=== PATIENT | female | born 1940 | race Caucasian/White ===

== ENCOUNTER 2016-10-01 21:59 | Inpatient (IN) | payer MEDICARE, MEDICAID ==
[~2016-10-01] VITALS: Ht 157.5 cm; Wt 82.0 kg
[~2016-10-01 21:59] MED LIST: ACET325T14 PO; ACID1TAB PO; ALBU2.5V NEB; AMIO200T42 PO; AMLO2.5T PO; AMLO2.5T2 PO; AMLO5TAB2 PO; ASPI-621 PO; ASPI325T4 PO; ASPI325T80 PO; ASPI81TA14 PO; ASPI81TA50 PO; ATOR40TA78 PO; BISA10SU54 PR; BUDE10.2 IH; CALC3.7S NAS; CARV3.122 PO; CEFD300C37 PO; CHOL100015 PO; CHOL10002 PO; CIPR500T87 PO; CLOP75TA PO; CYAN100028 PO; DIPH1TAB PO; DIPH1TAB6 PO; DIPH60LI PO; DULO30CA2 PO; ENOX40SY4 SQ; ERTA1VIA IV; FAMO-79 PO; FEXO180T5 PO; FLUT1AER PO; FLUT1DIS5 IH; FURO-92 PO; Gentamicin Per Pharmacy MC; HEPA50004 SQ; HYDR12.53 PO; INSU100C5 SQ-INSULIN; INSU100I18 SQ-INSULIN; INSU100I28 SQ-INSULIN; INSU100V10 SC; LACT1TAB3 PO; LANS15CA45 PO; LEVO100T PO; LEVO112T2 PO; LEVO500T33 PO; LEVO50TA PO; LEVO750T26 PO; LEVO750T6 PO; LIDO700A5 TD; LORA10TA62 PO; METF500T4 PO; METO25TA35 PO; METO50TA82 PO; METR500T PO; MIRT15TA PO; MORP-52 PO; MORP10SO PO; MORP20CA18 PO; MORPHINE SULFATE IR PO; Morphine Sulfate PO; NITR100C6 PO; NITR50CA PO; ONDA4TAB7 PO; OXYC-229 PO; POTA10TA11 PO; POTA20TA14 PO; POTA20TA91 PO; PRED10TA PO; PRED10TA14 PO; PREG100C PO; PREG25CA PO; RISP0.5T18 PO; RIVA10TA PO; RIVA20TA PO; SIMV10TA3 PO; SIMV20TA PO; SIMV20TA3 PO; TRAM50TA2 PO; VANC1VIA3 PO; VILA10TA PO; VILA40TA PO
[2016-10-01 23:04] LABS: ASPARTATE AMINO TRANSFERASE 21 U/L (15-37); BLOOD UREA NITROGEN 26 mg/dL (7-18)
[2016-10-02] MEDS ORDERED: ERTAPENEM 1 GM in SODIUM CHLORIDE 0.9% 50 ML IV ONE
[2016-10-02] MEDS ORDERED: SODIUM CHLORIDE 0.9% 1,000ML IVBOLUS ONE ×2 (01:00)
[2016-10-02] MEDS ORDERED: GLIP10TA13 PO (01:58)
[2016-10-02] MEDS ORDERED: METF10002 PO (01:58)
[2016-10-02] MEDS ORDERED: MAGN400T7 PO (01:58)
[2016-10-02] MEDS ORDERED: FERR324T5 PO (01:58)
[2016-10-02] MEDS ORDERED: AMLO5TAB4 PO (01:58)
[2016-10-02] MEDS ORDERED: LEVO100T5 PO (01:58)
[2016-10-02] MEDS: INSULIN DETEMIR 100 UNITS/ML, PEN SQ-INSULIN SCH ×2 (02:00→14:00)
[2016-10-02] MEDS ORDERED: SODIUM CHLORIDE 0.9% 1,000 ML IV SCH (02:01)
[2016-10-02] MEDS ORDERED: PHARMACY MAY ADJ FOR RENAL FX MC PRN (02:30)
[2016-10-02] MEDS: LEVOTHYROXINE MC SCH ×3 (03:00→19:00)
[2016-10-02] MEDS ORDERED: DEXTROSE 50%, 50ML SYRINGE ONE (03:02)
[2016-10-02] MEDS ORDERED: DEXTROSE 50%, 50ML SYRINGE IVPush PRN ×2 (03:30)
[2016-10-02] MEDS ORDERED: DEXTROSE 4 GM TAB.CHEW PO PRN ×2 (03:30)
[2016-10-02] MEDS ORDERED: ALBUTEROL/IPRATROPIUM 2.5MG/0.5MG, 3 ML NPPB PRN (03:30)
[2016-10-02] MEDS ORDERED: GLUCAGON 1 MG IM PRN ×2 (03:30)
[2016-10-02 05:18] VITALS: BP 132/71
[2016-10-02] MEDS ORDERED: LEVOTHYROXINE 112 MCG TABLET PO SCH (06:00)
[2016-10-02 06:30] VITALS: BP 137/78
[2016-10-02] MEDS: INSULIN ASPART 100 UNITS/ML, PEN SQ-INSULIN SCH ×4 (07:00→20:23)
[2016-10-02 07:42] LABS: IS PT STATUS REG ER OR PRE ER? NO
[2016-10-02] MEDS ORDERED: SODIUM CHLORIDE FLUSH 10ML SYR IVF SCH (09:00)
[2016-10-02] MEDS: SODIUM CHLORIDE FLUSH 10ML SYR IVF SCH ×2 (09:00→20:22)
[2016-10-02] MEDS: RIVAROXABAN 10 MG TABLET PO SCH (10:25)
[2016-10-02] MEDS: MAGNESIUM OXIDE 400 MG TABLET PO SCH (10:26)
[2016-10-02] MEDS: AMIODARONE 200 MG TABLET PO SCH (10:26)
[2016-10-02] MEDS: PREGABALIN 100 MG CAPSULE PO SCH ×3 (10:26→20:22)
[2016-10-02] MEDS: FERROUS SULFATE 325 MG TABLET PO SCH ×2 (10:26→20:22)
[2016-10-02] MEDS: AMLODIPINE 5 MG TABLET PO SCH (10:26)
[2016-10-02] MEDS: LEVOTHYROXINE 100 MCG TABLET PO SCH (10:49)
[2016-10-02] MEDS: CARVEDILOL 3.125 MG TABLET PO SCH ×2 (10:49→18:21)
[2016-10-02] MEDS: FLUTICASONE/VILANTEROL 100-25MCG/INH INH SCH (10:49)
[2016-10-02 12:32] LABS: IS PT STATUS REG ER OR PRE ER? NO
[2016-10-02 12:55] VITALS: BP 143/86
[2016-10-02 18:45] VITALS: BP 139/70
[2016-10-02] MEDS: ATORVASTATIN 40 MG TABLET PO SCH (20:22)
[2016-10-02] MEDS ORDERED: KETOROLAC 30 MG/1 ML IM PRN (23:00)
[2016-10-02] MEDS: ERTAPENEM 1 GM in SODIUM CHLORIDE 0.9% 50 ML IV SCH (23:43)
[2016-10-02 23:44] VITALS: BP 143/77
[2016-10-03] MEDS: LEVOTHYROXINE MC SCH ×2 (03:00→11:00)
[2016-10-03] MEDS ORDERED: KETOROLAC 30 MG/1 ML IV PRN (05:00)
[2016-10-03 05:21] LABS: ASPARTATE AMINO TRANSFERASE 19 U/L (15-37); BLOOD UREA NITROGEN 9 mg/dL (7-18)
[2016-10-03 05:30] VITALS: BP 152/71
[2016-10-03] MEDS: CARVEDILOL 3.125 MG TABLET PO SCH ×2 (05:32→17:44)
[2016-10-03] MEDS: LEVOTHYROXINE 100 MCG TABLET PO SCH (05:33)
[2016-10-03] MEDS: LEVOTHYROXINE 50 MCG TABLET PO SCH (05:33)
[2016-10-03] MEDS: INSULIN ASPART 100 UNITS/ML, PEN SQ-INSULIN SCH ×4 (07:00→20:40)
[2016-10-03 08:28] VITALS: BP 140/61
[2016-10-03] MEDS: FLUTICASONE/VILANTEROL 100-25MCG/INH INH SCH (08:29)
[2016-10-03] MEDS: SODIUM CHLORIDE FLUSH 10ML SYR IVF SCH ×2 (08:30→20:39)
[2016-10-03] MEDS: FERROUS SULFATE 325 MG TABLET PO SCH ×2 (08:30→20:39)
[2016-10-03] MEDS: AMIODARONE 200 MG TABLET PO SCH (08:30)
[2016-10-03] MEDS: MAGNESIUM OXIDE 400 MG TABLET PO SCH (08:31)
[2016-10-03] MEDS: RIVAROXABAN 10 MG TABLET PO SCH (08:31)
[2016-10-03] MEDS: PREGABALIN 100 MG CAPSULE PO SCH ×3 (08:31→20:40)
[2016-10-03] MEDS: AMLODIPINE 5 MG TABLET PO SCH (08:31)
[2016-10-03] MEDS ORDERED: LOPERAMIDE 2 MG CAPSULE PO PRN (11:00)
[2016-10-03 14:31] VITALS: BP 145/75
[2016-10-03] MEDS ORDERED: POTASSIUM CHLORIDE 20 MEQ TAB.ER.PRT PO ONE (15:30)
[2016-10-03] MEDS ORDERED: MAGNESIUM SULFATE PMX 4GM/100M 100 ML IV ONE (17:00)
[2016-10-03] MEDS: POTASSIUM CHLORIDE 20 MEQ TAB.ER.PRT PO SCH (17:00)
[2016-10-03 18:44] VITALS: BP 133/65
[2016-10-03] MEDS: ATORVASTATIN 40 MG TABLET PO SCH (20:40)
[2016-10-03] MEDS: LIDODERM 5% PATCH TD SCH (20:41)
[2016-10-04] MEDS: ERTAPENEM 1 GM in SODIUM CHLORIDE 0.9% 50 ML IV SCH ×2 (00:11→23:55)
[2016-10-04 01:09] VITALS: BP 127/63
[2016-10-04 05:34] LABS: BLOOD UREA NITROGEN 7 mg/dL (7-18)
[2016-10-04 05:55] VITALS: BP 139/74
[2016-10-04] MEDS: CARVEDILOL 3.125 MG TABLET PO SCH ×2 (05:56→18:10)
[2016-10-04] MEDS: LEVOTHYROXINE 50 MCG TABLET PO SCH (05:56)
[2016-10-04] MEDS: LEVOTHYROXINE 100 MCG TABLET PO SCH (05:56)
[2016-10-04 07:48] VITALS: BP 130/70
[2016-10-04] MEDS: RIVAROXABAN 10 MG TABLET PO SCH (08:26)
[2016-10-04] MEDS: FERROUS SULFATE 325 MG TABLET PO SCH ×2 (08:26→21:11)
[2016-10-04] MEDS: AMIODARONE 200 MG TABLET PO SCH (08:27)
[2016-10-04] MEDS: MAGNESIUM OXIDE 400 MG TABLET PO SCH (08:27)
[2016-10-04] MEDS: FLUTICASONE/VILANTEROL 100-25MCG/INH INH SCH (08:27)
[2016-10-04] MEDS: POTASSIUM CHLORIDE 20 MEQ TAB.ER.PRT PO SCH ×2 (08:27→18:10)
[2016-10-04] MEDS: PREGABALIN 100 MG CAPSULE PO SCH ×3 (08:27→21:11)
[2016-10-04] MEDS: AMLODIPINE 5 MG TABLET PO SCH (08:27)
[2016-10-04] MEDS: SODIUM CHLORIDE FLUSH 10ML SYR IVF SCH ×2 (08:28→21:11)
[2016-10-04] MEDS: INSULIN ASPART 100 UNITS/ML, PEN SQ-INSULIN SCH ×4 (08:28→21:41)
[2016-10-04 13:30] VITALS: BP 148/75
[2016-10-04 18:52] VITALS: BP 147/82
[2016-10-04] MEDS: ATORVASTATIN 40 MG TABLET PO SCH (21:11)
[2016-10-04] MEDS: LIDODERM 5% PATCH TD SCH (21:11)
[2016-10-05 01:24] VITALS: BP 159/81
[2016-10-05] MEDS: LEVOTHYROXINE 100 MCG TABLET PO SCH (05:35)
[2016-10-05] MEDS: CARVEDILOL 3.125 MG TABLET PO SCH ×2 (05:35→17:23)
[2016-10-05] MEDS: LEVOTHYROXINE 50 MCG TABLET PO SCH (05:55)
[2016-10-05 06:06] LABS: BLOOD UREA NITROGEN 11 mg/dL (7-18)
[2016-10-05 06:46] VITALS: BP 125/71
[2016-10-05] MEDS: INSULIN ASPART 100 UNITS/ML, PEN SQ-INSULIN SCH ×4 (09:00→21:19)
[2016-10-05] MEDS: FLUTICASONE/VILANTEROL 100-25MCG/INH INH SCH (10:18)
[2016-10-05] MEDS: PREGABALIN 100 MG CAPSULE PO SCH ×3 (10:18→21:20)
[2016-10-05] MEDS: POTASSIUM CHLORIDE 20 MEQ TAB.ER.PRT PO SCH ×2 (10:18→17:23)
[2016-10-05] MEDS: AMLODIPINE 5 MG TABLET PO SCH (10:19)
[2016-10-05] MEDS: MAGNESIUM OXIDE 400 MG TABLET PO SCH (10:19)
[2016-10-05] MEDS: FERROUS SULFATE 325 MG TABLET PO SCH ×2 (10:19→21:20)
[2016-10-05] MEDS: RIVAROXABAN 10 MG TABLET PO SCH (10:20)
[2016-10-05] MEDS: SODIUM CHLORIDE FLUSH 10ML SYR IVF SCH ×2 (10:20→21:20)
[2016-10-05] MEDS: AMIODARONE 200 MG TABLET PO SCH (10:21)
[2016-10-05 12:47] VITALS: BP 163/78
[2016-10-05] MEDS ORDERED: PNEUMOC 13-VALENT VACC, 0.5 ML IM-VACC ONE (17:00)
[2016-10-05 20:00] VITALS: BP 155/81
[2016-10-05] MEDS: ATORVASTATIN 40 MG TABLET PO SCH (21:20)
[2016-10-05] MEDS: LIDODERM 5% PATCH TD SCH (21:21)
[2016-10-06] MEDS: ERTAPENEM 1 GM in SODIUM CHLORIDE 0.9% 50 ML IV SCH (00:11)
[2016-10-06 00:50] VITALS: BP 124/61
[2016-10-06 05:36] LABS: BLOOD UREA NITROGEN 18 mg/dL (7-18)
[2016-10-06] MEDS: CARVEDILOL 3.125 MG TABLET PO SCH (05:36)
[2016-10-06 05:49] LABS: ASPARTATE AMINO TRANSFERASE 17 U/L (15-37)
[2016-10-06] MEDS: LEVOTHYROXINE 100 MCG TABLET PO SCH (06:16)
[2016-10-06] MEDS ORDERED: ERTA1VIA IV (07:52)
[2016-10-06] MEDS: INSULIN ASPART 100 UNITS/ML, PEN SQ-INSULIN SCH ×2 (09:00→12:47)
[2016-10-06 09:11] VITALS: BP 140/69
[2016-10-06] MEDS: AMIODARONE 200 MG TABLET PO SCH (10:04)
[2016-10-06] MEDS: MAGNESIUM OXIDE 400 MG TABLET PO SCH (10:04)
[2016-10-06] MEDS: RIVAROXABAN 10 MG TABLET PO SCH (10:04)
[2016-10-06] MEDS: FLUTICASONE/VILANTEROL 100-25MCG/INH INH SCH (10:04)
[2016-10-06] MEDS: FERROUS SULFATE 325 MG TABLET PO SCH (10:04)
[2016-10-06] MEDS: AMLODIPINE 5 MG TABLET PO SCH (10:04)
[2016-10-06] MEDS: PREGABALIN 100 MG CAPSULE PO SCH (10:04)
[2016-10-06] MEDS: SODIUM CHLORIDE FLUSH 10ML SYR IVF SCH (10:05)
[2016-10-09 17:06] LABS: RA LATEX TURBIDITY 15.6 IU/mL (0.0-13.9)
== END 2016-10-06 15:44 | DRG 871 ==
LOC: ED 23:59 → EDIP 10-02 00:32 → SUATTDRO 10-02 01:10 → 4WST 10-02 02:31
PROVIDERS: ADMIT Internal Medicine; ATTEND Internal Medicine
PROC: 0T9B70Z Drainage of Bladder with Drainage Device, Via Natural or Artificial Opening (ICD-10-PCS; principal; 2016-10-03)
PROC: 02HV33Z Insertion of Infusion Device into Superior Vena Cava, Percutaneous Approach (ICD-10-PCS; 2016-10-06)
PROC: B5181ZA Fluoroscopy of Superior Vena Cava using Low Osmolar Contrast, Guidance (ICD-10-PCS; 2016-10-06)
DX: A41.51 Sepsis due to Escherichia coli [E. coli] (principal); G93.41 Metabolic encephalopathy; R53.2 Functional quadriplegia; N17.9 Acute kidney failure, unspecified; D68.69 Other thrombophilia; E87.2 Acidosis; G45.9 Transient cerebral ischemic attack, unspecified; E23.0 Hypopituitarism; N12 Tubulo-interstitial nephritis, not specified as acute or chronic; R47.01 Aphasia; D50.9 Iron deficiency anemia, unspecified; E03.9 Hypothyroidism, unspecified; E11.22 Type 2 diabetes mellitus with diabetic chronic kidney disease; E78.00 Pure hypercholesterolemia, unspecified; E78.5 Hyperlipidemia, unspecified; E83.42 Hypomagnesemia; E86.0 Dehydration; E87.6 Hypokalemia; G89.29 Other chronic pain; H26.9 Unspecified cataract; I08.0 Rheumatic disorders of both mitral and aortic valves; I25.10 Atherosclerotic heart disease of native coronary artery without angina pectoris; I48.0 Paroxysmal atrial fibrillation; I48.2 Chronic atrial fibrillation; M06.9 Rheumatoid arthritis, unspecified; M10.9 Gout, unspecified; M19.90 Unspecified osteoarthritis, unspecified site; M79.7 Fibromyalgia; Z96.642 Presence of left artificial hip joint; Z96.653 Presence of artificial knee joint, bilateral; N18.2 Chronic kidney disease, stage 2 (mild); E11.40 Type 2 diabetes mellitus with diabetic neuropathy, unspecified; E11.649 Type 2 diabetes mellitus with hypoglycemia without coma; R32 Unspecified urinary incontinence; T38.0X5A Adverse effect of glucocorticoids and synthetic analogues, initial encounter; Z16.12 Extended spectrum beta lactamase (ESBL) resistance; Z79.4 Long term (current) use of insulin; Z79.52 Long term (current) use of systemic steroids; Z79.891 Long term (current) use of opiate analgesic; Z80.7 Family history of other malignant neoplasms of lymphoid, hematopoietic and related tissues; Z86.73 Personal history of transient ischemic attack (TIA), and cerebral infarction without residual deficits; Z86.718 Personal history of other venous thrombosis and embolism; Z79.01 Long term (current) use of anticoagulants; Z87.01 Personal history of pneumonia (recurrent); Z86.19 Personal history of other infectious and parasitic diseases; Z87.440 Personal history of urinary (tract) infections; Z87.442 Personal history of urinary calculi; Z88.0 Allergy status to penicillin; Z90.13 Acquired absence of bilateral breasts and nipples; Z90.49 Acquired absence of other specified parts of digestive tract; Z99.3 Dependence on wheelchair; Z99.81 Dependence on supplemental oxygen; Z88.1 Allergy status to other antibiotic agents; Z88.2 Allergy status to sulfonamides; Z88.8 Allergy status to other drugs, medicaments and biological substances; Z91.048 Other nonmedicinal substance allergy status
CPT/HCPCS: 36415; 36569; 70450; 71010; 76856; 76937; 77001; 80048; 80053; 81001; 82962; 83036; 83605; 83735; 84145; 84443; 84484; 84550; 85025; 86038; 86200; 86431; 87040; 87077; 87086; 87186; 87324; 93005; 96365; 96366; J1335; J1815; J1885; C1751; G0009; J3475; J7030; J7512

== ENCOUNTER 2016-12-23 13:37 | Inpatient (IN) | payer MEDICARE, MEDICAID ==
[~2016-12-23] VITALS: Ht 154.9 cm; Wt 72.7 kg
[~2016-12-23 13:37] MED LIST changes: +AMLO5TAB4 PO; +ASPI325T17 PO; -ASPI325T4 PO; +CEFT1PIG IV; +FERR324T5 PO; +FEXO180T15 PO; -FEXO180T5 PO; +GLIP10TA13 PO; -INSU100V10 SC; +INSU100V11 SC; +LACT1CAP24 PO; -LANS15CA45 PO; +LANS15CA60 PO; +LEVO100T5 PO; -LEVO500T33 PO; +LEVO500T47 PO; +MAGN400T7 PO; +METF10002 PO; -OXYC-229 PO; +OXYC-307 PO; +POLY17PO5 PO; -RISP0.5T18 PO; +RISP0.5T24 PO
[2016-12-23] MEDS ORDERED: MORPHINE SULFATE 4 MG/ML, 1ML IVPush PRN (14:00)
[2016-12-23] MEDS ORDERED: SODIUM CHLORIDE FLUSH 10ML SYR IVF ONE (14:00)
[2016-12-23] MEDS ORDERED: ERTAPENEM 1 GM in SODIUM CHLORIDE 0.9% 50 ML IV SCH (14:00)
[2016-12-23] MEDS ORDERED: MORPHINE SULFATE 4 MG/ML, 1ML ONE (14:15)
[2016-12-23 14:29] LABS: HEMATOCRIT 25.3 % (34.6-47.8); HEMOGLOBIN 8.2 g/dL (11.7-16.4); WHITE BLOOD COUNT 10.9 x10^3/uL (3.4-10)
[2016-12-23 14:37] LABS: BLOOD UREA NITROGEN 30 mg/dL (7-18)
[2016-12-23] MEDS ORDERED: INSU100C5 SQ-INSULIN (15:18)
[2016-12-23] MEDS ORDERED: NITR100C56 PO (15:18)
[2016-12-23] MEDS ORDERED: SODIUM CHLORIDE 0.9%, 500ML IVBOLUS ONE (15:30)
[2016-12-23] MEDS: INSULIN ASPART 100 UNITS/ML, PEN SQ-INSULIN SCH ×2 (16:00→22:47)
[2016-12-23] MEDS ORDERED: ONDANSETRON ODT 4 MG PO PRN (16:00)
[2016-12-23] MEDS ORDERED: POLYETHYLENE GLYCOL 17 GM PACKET PO PRN (16:00)
[2016-12-23] MEDS ORDERED: GUAIFENESIN/DM 200-20MG, 10ML UDC PO PRN (16:00)
[2016-12-23] MEDS ORDERED: LABETALOL 5MG/ML, 20ML IVPush PRN (16:00)
[2016-12-23] MEDS ORDERED: ONDANSETRON 2MG/ML, 2ML IVPush PRN (16:00)
[2016-12-23 16:27] LABS: HEMATOCRIT 26.2 % (34.6-47.8); HEMOGLOBIN 8.4 g/dL (11.7-16.4)
[2016-12-23 17:55] VITALS: BP 126/57
[2016-12-23] MEDS: PREGABALIN 100 MG CAPSULE PO SCH ×2 (18:22→21:31)
[2016-12-23] MEDS: LIDODERM 5% PATCH TD SCH (19:50)
[2016-12-23 19:58] VITALS: BP 136/70
[2016-12-23] MEDS ORDERED: (Budesonide/Formoterol Fumarate (Symbicort 160-4.5 Mcg Inhaler IH SCH (21:00)
[2016-12-23] MEDS: ATORVASTATIN 40 MG TABLET PO SCH (21:31)
[2016-12-23] MEDS: CARVEDILOL 3.125 MG TABLET PO SCH (21:31)
[2016-12-23] MEDS: FERROUS GLUCONATE 324 MG TABLET PO SCH (21:31)
[2016-12-23] MEDS ORDERED: D5%-0.9% NACL 1,000 ML IV SCH ×2 (23:30→23:55)
[2016-12-24] VITALS (11 sets, daily range): BP systolic 96–128; BP diastolic 45–72
[2016-12-24 00:51] LABS: HEMATOCRIT 24.5 % (34.6-47.8); HEMOGLOBIN 7.7 g/dL (11.7-16.4)
[2016-12-24 04:51] LABS: HEMOGLOBIN 7.7 g/dL (11.7-16.4); WHITE BLOOD COUNT 8.6 x10^3/uL (3.4-10)
[2016-12-24 04:52] LABS: ASPARTATE AMINO TRANSFERASE 9 U/L (15-37); BLOOD UREA NITROGEN 28 mg/dL (7-18)
[2016-12-24] MEDS: INSULIN ASPART 100 UNITS/ML, PEN SQ-INSULIN SCH ×4 (07:00→21:00)
[2016-12-24 08:21] LABS: HEMOGLOBIN 7.4 g/dL (11.7-16.4)
[2016-12-24 08:22] LABS: HEMATOCRIT 22.3 % (34.6-47.8)
[2016-12-24] MEDS: SENNA/DOCUSATE TABLET PO SCH (08:51)
[2016-12-24] MEDS: PREGABALIN 100 MG CAPSULE PO SCH ×3 (08:51→20:47)
[2016-12-24] MEDS: FERROUS GLUCONATE 324 MG TABLET PO SCH ×2 (08:51→20:47)
[2016-12-24] MEDS: LEVOTHYROXINE 100 MCG TABLET PO SCH (08:51)
[2016-12-24] MEDS: AMLODIPINE 5 MG TABLET PO SCH (08:51)
[2016-12-24] MEDS: CARVEDILOL 3.125 MG TABLET PO SCH ×2 (08:52→20:47)
[2016-12-24] MEDS: AMIODARONE 200 MG TABLET PO SCH (08:57)
[2016-12-24] MEDS: FLUTICASONE/VILANTEROL 200-25MCG/INH INH SCH (09:00)
[2016-12-24] MEDS: LIDODERM 5% PATCH TD SCH (16:00)
[2016-12-24] MEDS: ATORVASTATIN 40 MG TABLET PO SCH (20:47)
[2016-12-24] MEDS ORDERED: D5%-0.9% NACL 1,000 ML IV SCH (23:30)
[2016-12-25 02:17] VITALS: BP 103/59
[2016-12-25 04:28] LABS: HEMATOCRIT 30.3 % (34.6-47.8); HEMOGLOBIN 10.1 g/dL (11.7-16.4); WHITE BLOOD COUNT 7.5 x10^3/uL (3.4-10)
[2016-12-25 04:36] LABS: BLOOD UREA NITROGEN 21 mg/dL (7-18)
[2016-12-25] MEDS: INSULIN ASPART 100 UNITS/ML, PEN SQ-INSULIN SCH ×4 (07:00→20:41)
[2016-12-25 07:01] VITALS: BP 118/60
[2016-12-25] MEDS: SENNA/DOCUSATE TABLET PO SCH (09:00)
[2016-12-25] MEDS ORDERED: POTASSIUM CHLORIDE 20 MEQ TAB.ER.PRT PO ONE ×2 (09:00→17:30)
[2016-12-25] MEDS: CARVEDILOL 3.125 MG TABLET PO SCH ×2 (09:01→20:35)
[2016-12-25] MEDS: PREGABALIN 100 MG CAPSULE PO SCH ×3 (09:01→20:34)
[2016-12-25] MEDS: FERROUS GLUCONATE 324 MG TABLET PO SCH ×2 (09:01→20:34)
[2016-12-25] MEDS: LEVOTHYROXINE 100 MCG TABLET PO SCH (09:01)
[2016-12-25] MEDS: AMIODARONE 200 MG TABLET PO SCH (09:01)
[2016-12-25] MEDS: AMLODIPINE 5 MG TABLET PO SCH (09:01)
[2016-12-25] MEDS: FLUTICASONE/VILANTEROL 200-25MCG/INH INH SCH (10:20)
[2016-12-25 13:02] VITALS: BP 103/63
[2016-12-25] MEDS ORDERED: MAGNESIUM SULFATE PMX 2GM/50ML 50 ML IV ONE (17:00)
[2016-12-25 19:32] VITALS: BP 177/91
[2016-12-25] MEDS: ATORVASTATIN 40 MG TABLET PO SCH (20:34)
[2016-12-25] MEDS: MORPHINE SULFATE 4 MG/ML, 1ML IVPush PRN (20:35)
[2016-12-25] MEDS: LIDODERM 5% PATCH TD SCH (20:37)
[2016-12-26 02:53] VITALS: BP 123/66
[2016-12-26 04:31] LABS: HEMOGLOBIN 10.3 g/dL (11.7-16.4); WHITE BLOOD COUNT 6.5 x10^3/uL (3.4-10)
[2016-12-26 04:41] LABS: BLOOD UREA NITROGEN 15 mg/dL (7-18)
[2016-12-26 06:59] VITALS: BP 148/78
[2016-12-26] MEDS: INSULIN ASPART 100 UNITS/ML, PEN SQ-INSULIN SCH ×4 (07:18→21:20)
[2016-12-26] MEDS: FLUTICASONE/VILANTEROL 200-25MCG/INH INH SCH (08:19)
[2016-12-26] MEDS: AMLODIPINE 5 MG TABLET PO SCH (08:19)
[2016-12-26] MEDS: AMIODARONE 200 MG TABLET PO SCH (08:19)
[2016-12-26] MEDS: FERROUS GLUCONATE 324 MG TABLET PO SCH ×2 (08:19→21:14)
[2016-12-26] MEDS: PREGABALIN 100 MG CAPSULE PO SCH ×3 (08:20→21:14)
[2016-12-26] MEDS: LEVOTHYROXINE 100 MCG TABLET PO SCH (08:20)
[2016-12-26] MEDS: SENNA/DOCUSATE TABLET PO SCH (08:20)
[2016-12-26] MEDS: CARVEDILOL 3.125 MG TABLET PO SCH ×2 (08:30→21:14)
[2016-12-26 14:17] VITALS: BP 119/71
[2016-12-26] MEDS: ENOXAPARIN 40 MG/0.4 ML SQ SCH (16:52)
[2016-12-26 19:27] VITALS: BP 153/80
[2016-12-26] MEDS: LIDODERM 5% PATCH TD SCH (21:13)
[2016-12-26] MEDS: ATORVASTATIN 40 MG TABLET PO SCH (21:14)
[2016-12-27 01:27] VITALS: BP 131/68
[2016-12-27 04:37] LABS: HEMATOCRIT 31.5 % (34.6-47.8); HEMOGLOBIN 10.4 g/dL (11.7-16.4); WHITE BLOOD COUNT 6.3 x10^3/uL (3.4-10)
[2016-12-27 04:49] LABS: BLOOD UREA NITROGEN 11 mg/dL (7-18)
[2016-12-27] MEDS: CARVEDILOL 3.125 MG TABLET PO SCH ×2 (07:46→21:20)
[2016-12-27] MEDS: SENNA/DOCUSATE TABLET PO SCH (07:46)
[2016-12-27] MEDS: FERROUS GLUCONATE 324 MG TABLET PO SCH ×2 (07:46→22:22)
[2016-12-27] MEDS: LEVOTHYROXINE 100 MCG TABLET PO SCH (07:46)
[2016-12-27] MEDS: FLUTICASONE/VILANTEROL 200-25MCG/INH INH SCH (07:47)
[2016-12-27] MEDS: PREGABALIN 100 MG CAPSULE PO SCH ×3 (07:47→21:20)
[2016-12-27] MEDS: AMIODARONE 200 MG TABLET PO SCH (07:47)
[2016-12-27] MEDS: AMLODIPINE 5 MG TABLET PO SCH (07:47)
[2016-12-27] MEDS: INSULIN ASPART 100 UNITS/ML, PEN SQ-INSULIN SCH ×4 (07:48→22:14)
[2016-12-27 08:50] VITALS: BP 147/74
[2016-12-27] MEDS: MORPHINE SULFATE 4 MG/ML, 1ML IVPush PRN (12:33)
[2016-12-27 15:50] VITALS: BP 132/73
[2016-12-27] MEDS: ENOXAPARIN 40 MG/0.4 ML SQ SCH (17:13)
[2016-12-27 20:03] VITALS: BP 155/66
[2016-12-27] MEDS: ATORVASTATIN 40 MG TABLET PO SCH (21:00)
[2016-12-27] MEDS: LIDODERM 5% PATCH TD SCH (21:34)
[2016-12-28 00:14] VITALS: BP 99/62
[2016-12-28 05:04] LABS: HEMATOCRIT 30.7 % (34.6-47.8); HEMOGLOBIN 10.1 g/dL (11.7-16.4); WHITE BLOOD COUNT 7.9 x10^3/uL (3.4-10)
[2016-12-28 05:08] LABS: BLOOD UREA NITROGEN 11 mg/dL (7-18)
[2016-12-28 05:13] LABS: ASPARTATE AMINO TRANSFERASE 27 U/L (15-37)
[2016-12-28] MEDS: FLUTICASONE/VILANTEROL 200-25MCG/INH INH SCH (07:57)
[2016-12-28] MEDS: INSULIN ASPART 100 UNITS/ML, PEN SQ-INSULIN SCH ×4 (07:57→20:44)
[2016-12-28] MEDS: AMLODIPINE 5 MG TABLET PO SCH (07:58)
[2016-12-28] MEDS: FERROUS GLUCONATE 324 MG TABLET PO SCH ×2 (07:58→20:31)
[2016-12-28] MEDS: CARVEDILOL 3.125 MG TABLET PO SCH ×2 (07:58→20:34)
[2016-12-28] MEDS: PREGABALIN 100 MG CAPSULE PO SCH ×3 (07:58→20:31)
[2016-12-28] MEDS: LEVOTHYROXINE 100 MCG TABLET PO SCH (07:58)
[2016-12-28] MEDS: AMIODARONE 200 MG TABLET PO SCH (07:58)
[2016-12-28] MEDS: SENNA/DOCUSATE TABLET PO SCH (07:58)
[2016-12-28 08:21] VITALS: BP 179/77
[2016-12-28] MEDS ORDERED: POTASSIUM CHLORIDE 20 MEQ TAB.ER.PRT PO ONE (13:30)
[2016-12-28] MEDS ORDERED: MAGNESIUM SULFATE PMX 4GM/100M 100 ML IV ONE (13:30)
[2016-12-28 13:58] VITALS: BP 105/65
[2016-12-28] MEDS: ENOXAPARIN 40 MG/0.4 ML SQ SCH (15:39)
[2016-12-28 18:40] VITALS: BP 133/69
[2016-12-28] MEDS: LIDODERM 5% PATCH TD SCH (20:31)
[2016-12-28] MEDS: ATORVASTATIN 40 MG TABLET PO SCH (20:31)
[2016-12-29 00:31] VITALS: BP 113/68
[2016-12-29 05:32] LABS: HEMATOCRIT 30.1 % (34.6-47.8); WHITE BLOOD COUNT 6.6 x10^3/uL (3.4-10)
[2016-12-29 06:14] LABS: ASPARTATE AMINO TRANSFERASE 25 U/L (15-37); BLOOD UREA NITROGEN 11 mg/dL (7-18)
[2016-12-29 07:04] VITALS: BP 121/66
[2016-12-29] MEDS: FLUTICASONE/VILANTEROL 200-25MCG/INH INH SCH (09:00)
[2016-12-29] MEDS: AMLODIPINE 5 MG TABLET PO SCH (10:15)
[2016-12-29] MEDS: SENNA/DOCUSATE TABLET PO SCH (10:15)
[2016-12-29] MEDS: LEVOTHYROXINE 100 MCG TABLET PO SCH (10:15)
[2016-12-29] MEDS: FERROUS GLUCONATE 324 MG TABLET PO SCH ×2 (10:15→19:57)
[2016-12-29] MEDS: PREGABALIN 100 MG CAPSULE PO SCH ×3 (10:15→19:57)
[2016-12-29] MEDS: CARVEDILOL 3.125 MG TABLET PO SCH ×2 (10:16→19:57)
[2016-12-29] MEDS: AMIODARONE 200 MG TABLET PO SCH (10:16)
[2016-12-29] MEDS: INSULIN ASPART 100 UNITS/ML, PEN SQ-INSULIN SCH ×4 (10:17→21:49)
[2016-12-29 13:17] VITALS: BP 152/66
[2016-12-29] MEDS: ENOXAPARIN 40 MG/0.4 ML SQ SCH (16:41)
[2016-12-29 18:50] VITALS: BP 168/74
[2016-12-29] MEDS: ATORVASTATIN 40 MG TABLET PO SCH (19:57)
[2016-12-29] MEDS: LIDODERM 5% PATCH TD SCH ×2 (20:06→20:15)
[2016-12-29] MEDS: INSULIN DETEMIR 100 UNITS/ML, PEN SQ-INSULIN SCH (21:48)
[2016-12-30 00:04] VITALS: BP 138/70
[2016-12-30 06:30] VITALS: BP 162/71
[2016-12-30] MEDS: FLUTICASONE/VILANTEROL 200-25MCG/INH INH SCH (08:25)
[2016-12-30] MEDS: MORPHINE SULFATE 4 MG/ML, 1ML IVPush PRN ×3 (08:25→22:39)
[2016-12-30] MEDS: AMLODIPINE 5 MG TABLET PO SCH (08:26)
[2016-12-30] MEDS: FERROUS GLUCONATE 324 MG TABLET PO SCH ×3 (08:26→21:00)
[2016-12-30] MEDS: PREGABALIN 100 MG CAPSULE PO SCH ×4 (08:26→21:00)
[2016-12-30] MEDS: AMIODARONE 200 MG TABLET PO SCH (08:27)
[2016-12-30] MEDS: LEVOTHYROXINE 100 MCG TABLET PO SCH (08:27)
[2016-12-30] MEDS: SENNA/DOCUSATE TABLET PO SCH (08:27)
[2016-12-30] MEDS: CARVEDILOL 3.125 MG TABLET PO SCH ×3 (08:27→21:00)
[2016-12-30] MEDS: INSULIN ASPART 100 UNITS/ML, PEN SQ-INSULIN SCH ×4 (08:28→20:50)
[2016-12-30] MEDS: INSULIN DETEMIR 100 UNITS/ML, PEN SQ-INSULIN SCH ×2 (08:29→20:49)
[2016-12-30] MEDS ORDERED: CEFTAZIDIME 2,000 MG in SODIUM CHLORIDE 0.9% 50 ML IV SCH (11:00)
[2016-12-30 12:31] VITALS: BP 133/73
[2016-12-30] MEDS: ENOXAPARIN 40 MG/0.4 ML SQ SCH (18:29)
[2016-12-30 18:42] VITALS: BP 115/67
[2016-12-30] MEDS: ATORVASTATIN 40 MG TABLET PO SCH ×2 (20:48→21:00)
[2016-12-30] MEDS: CEFTAZIDIME PMX 2 GM/50ML 50 ML IV SCH (21:25)
[2016-12-30] MEDS: LIDODERM 5% PATCH TD SCH (22:40)
[2016-12-31 01:17] VITALS: BP 150/67
[2016-12-31] MEDS: CEFTAZIDIME PMX 2 GM/50ML 50 ML IV SCH ×3 (04:44→21:04)
[2016-12-31] MEDS: MORPHINE SULFATE 4 MG/ML, 1ML IVPush PRN ×4 (04:44→21:04)
[2016-12-31 04:54] LABS: HEMATOCRIT 31.1 % (34.6-47.8); HEMOGLOBIN 10.3 g/dL (11.7-16.4); WHITE BLOOD COUNT 7.2 x10^3/uL (3.4-10)
[2016-12-31 05:18] LABS: ASPARTATE AMINO TRANSFERASE 11 U/L (15-37); BLOOD UREA NITROGEN 14 mg/dL (7-18)
[2016-12-31] MEDS ORDERED: KETOROLAC 30 MG/1 ML IM PRN (06:30)
[2016-12-31] MEDS: INSULIN ASPART 100 UNITS/ML, PEN SQ-INSULIN SCH ×4 (07:00→21:17)
[2016-12-31] MEDS: INSULIN DETEMIR 100 UNITS/ML, PEN SQ-INSULIN SCH ×2 (09:00→21:00)
[2016-12-31] MEDS: FERROUS GLUCONATE 324 MG TABLET PO SCH ×2 (09:00→21:00)
[2016-12-31] MEDS: SENNA/DOCUSATE TABLET PO SCH (09:00)
[2016-12-31] MEDS: PREGABALIN 100 MG CAPSULE PO SCH ×3 (09:00→21:00)
[2016-12-31] MEDS: AMLODIPINE 5 MG TABLET PO SCH (09:00)
[2016-12-31] MEDS: FLUTICASONE/VILANTEROL 200-25MCG/INH INH SCH (09:00)
[2016-12-31] MEDS: AMIODARONE 200 MG TABLET PO SCH (09:00)
[2016-12-31] MEDS: LEVOTHYROXINE 100 MCG TABLET PO SCH (09:00)
[2016-12-31] MEDS: CARVEDILOL 3.125 MG TABLET PO SCH ×2 (09:00→21:00)
[2016-12-31] MEDS: ENOXAPARIN 30 MG/0.3 ML SQ SCH (16:38)
[2016-12-31] MEDS: SODIUM CHLORIDE 0.9% 1,000 ML IV SCH (17:20)
[2016-12-31 19:12] VITALS: BP 133/66
[2016-12-31] MEDS ORDERED: PHARMACOKINETIC CONSULTATION MC ONE ×2 (20:00)
[2016-12-31] MEDS ORDERED: PHARMACOKINETIC MONITORING MC PRN (20:00)
[2016-12-31] MEDS ORDERED: VANCOMYCIN PER PHARMACY MC PRN (20:00)
[2016-12-31] MEDS ORDERED: VANCOMYCIN PMX 1GM/200ML 200 ML IV SCH ×3 (20:30)
[2016-12-31] MEDS: LIDODERM 5% PATCH TD SCH (21:00)
[2016-12-31] MEDS: ATORVASTATIN 40 MG TABLET PO SCH (21:00)
[2017-01-01] MEDS ORDERED: MORPHINE SULFATE 4 MG/ML, 1ML ONE (02:10)
[2017-01-01] MEDS: MORPHINE SULFATE 4 MG/ML, 1ML IVPush PRN ×4 (02:16→16:13)
[2017-01-01] MEDS: CEFTAZIDIME PMX 2 GM/50ML 50 ML IV SCH (03:42)
[2017-01-01 06:33] LABS: ASPARTATE AMINO TRANSFERASE 10 U/L (15-37); BLOOD UREA NITROGEN 12 mg/dL (7-18)
[2017-01-01 06:33] LABS: HEMATOCRIT 29.9 % (34.6-47.8); HEMOGLOBIN 9.8 g/dL (11.7-16.4); WHITE BLOOD COUNT 9.2 x10^3/uL (3.4-10)
[2017-01-01] MEDS ORDERED: MAGNESIUM SULFATE PMX 2GM/50ML 50 ML IV ONE (07:30)
[2017-01-01 08:00] VITALS: BP 160/77
[2017-01-01] MEDS: FERROUS GLUCONATE 324 MG TABLET PO SCH ×2 (08:40→21:00)
[2017-01-01] MEDS: PREGABALIN 100 MG CAPSULE PO SCH ×3 (08:40→21:00)
[2017-01-01] MEDS: AMIODARONE 200 MG TABLET PO SCH (08:41)
[2017-01-01] MEDS: AMLODIPINE 5 MG TABLET PO SCH (08:41)
[2017-01-01] MEDS: CARVEDILOL 3.125 MG TABLET PO SCH ×2 (08:41→21:00)
[2017-01-01] MEDS: LEVOTHYROXINE 100 MCG TABLET PO SCH (08:41)
[2017-01-01] MEDS: SENNA/DOCUSATE TABLET PO SCH (08:42)
[2017-01-01] MEDS: FLUTICASONE/VILANTEROL 200-25MCG/INH INH SCH (08:42)
[2017-01-01] MEDS: INSULIN ASPART 100 UNITS/ML, PEN SQ-INSULIN SCH ×4 (08:45→21:16)
[2017-01-01] MEDS: INSULIN DETEMIR 100 UNITS/ML, PEN SQ-INSULIN SCH ×2 (08:46→21:16)
[2017-01-01] MEDS ORDERED: POTASSIUM CHLORIDE 20 MEQ in SODIUM CHLORIDE 0.9% 250 ML IV ONE (10:00)
[2017-01-01] MEDS ORDERED: MEROPENEM 500 MG in SODIUM CHLORIDE 0.9% 100 ML IV SCH (10:30)
[2017-01-01 14:00] VITALS: BP 120/61
[2017-01-01] MEDS ORDERED: POTASSIUM CHLORIDE 20 MEQ TAB.ER.PRT PO ONE (14:00)
[2017-01-01] MEDS: ENOXAPARIN 30 MG/0.3 ML SQ SCH (16:07)
[2017-01-01] MEDS: SODIUM CHLORIDE 0.9% 1,000 ML IV SCH (16:07)
[2017-01-01 16:41] LABS: BLOOD UREA NITROGEN 14 mg/dL (7-18)
[2017-01-01 18:34] VITALS: BP 137/71
[2017-01-01] MEDS: ATORVASTATIN 40 MG TABLET PO SCH (21:00)
[2017-01-01] MEDS: MEROPENEM 1 GM in SODIUM CHLORIDE 0.9% 50 ML IV SCH (21:13)
[2017-01-01] MEDS: LIDODERM 5% PATCH TD SCH (21:22)
[2017-01-02 00:58] VITALS: BP 144/68
[2017-01-02] MEDS: MORPHINE SULFATE 4 MG/ML, 1ML IVPush PRN ×3 (04:50→13:59)
[2017-01-02 05:19] LABS: HEMOGLOBIN 9.2 g/dL (11.7-16.4); WHITE BLOOD COUNT 5.8 x10^3/uL (3.4-10)
[2017-01-02 05:21] LABS: BLOOD UREA NITROGEN 14 mg/dL (7-18)
[2017-01-02] MEDS: MEROPENEM 1 GM in SODIUM CHLORIDE 0.9% 50 ML IV SCH ×3 (05:23→22:08)
[2017-01-02 05:40] LABS: C-REACTIVE PROTEIN, QUANT > 19.00 mg/dL (0.02-0.49)
[2017-01-02] MEDS: SODIUM CHLORIDE 0.9% 1,000 ML IV SCH (06:42)
[2017-01-02 08:14] VITALS: BP 131/69
[2017-01-02] MEDS: FERROUS GLUCONATE 324 MG TABLET PO SCH ×2 (08:35→20:21)
[2017-01-02] MEDS: AMLODIPINE 5 MG TABLET PO SCH (08:35)
[2017-01-02] MEDS: SENNA/DOCUSATE TABLET PO SCH (08:35)
[2017-01-02] MEDS: PREGABALIN 100 MG CAPSULE PO SCH ×3 (08:35→20:22)
[2017-01-02] MEDS: LEVOTHYROXINE 100 MCG TABLET PO SCH (08:35)
[2017-01-02] MEDS: CARVEDILOL 3.125 MG TABLET PO SCH ×2 (08:35→20:21)
[2017-01-02] MEDS: AMIODARONE 200 MG TABLET PO SCH (08:35)
[2017-01-02] MEDS: INSULIN DETEMIR 100 UNITS/ML, PEN SQ-INSULIN SCH ×2 (08:36→20:11)
[2017-01-02] MEDS: INSULIN ASPART 100 UNITS/ML, PEN SQ-INSULIN SCH ×4 (08:36→20:12)
[2017-01-02] MEDS: FLUTICASONE/VILANTEROL 200-25MCG/INH INH SCH (08:37)
[2017-01-02 14:43] VITALS: BP 102/61
[2017-01-02] MEDS: ENOXAPARIN 40 MG/0.4 ML SQ SCH (17:32)
[2017-01-02] MEDS ORDERED: SODIUM CHLORIDE 0.9%, 500ML IVBOLUS ONE (18:30)
[2017-01-02 19:23] VITALS: BP 110/66
[2017-01-02] MEDS: ATORVASTATIN 40 MG TABLET PO SCH (20:21)
[2017-01-02] MEDS: LIDODERM 5% PATCH TD SCH (21:16)
[2017-01-03 03:14] VITALS: BP 116/70
[2017-01-03] MEDS: MORPHINE SULFATE 4 MG/ML, 1ML IVPush PRN ×2 (03:19→13:38)
[2017-01-03 05:39] LABS: HEMATOCRIT 28.8 % (34.6-47.8); HEMOGLOBIN 9.1 g/dL (11.7-16.4)
[2017-01-03 05:45] LABS: BLOOD UREA NITROGEN 14 mg/dL (7-18)
[2017-01-03] MEDS: SODIUM CHLORIDE 0.9% 1,000 ML IV SCH ×3 (05:56→10:05)
[2017-01-03] MEDS: MEROPENEM 1 GM in SODIUM CHLORIDE 0.9% 50 ML IV SCH ×3 (05:56→21:41)
[2017-01-03 09:50] VITALS: BP 159/75
[2017-01-03] MEDS: INSULIN DETEMIR 100 UNITS/ML, PEN SQ-INSULIN SCH ×2 (10:01→22:08)
[2017-01-03] MEDS: INSULIN ASPART 100 UNITS/ML, PEN SQ-INSULIN SCH ×4 (10:01→22:09)
[2017-01-03] MEDS: SENNA/DOCUSATE TABLET PO SCH (10:02)
[2017-01-03] MEDS: CARVEDILOL 3.125 MG TABLET PO SCH ×3 (10:02→21:41)
[2017-01-03] MEDS: PREGABALIN 100 MG CAPSULE PO SCH ×4 (10:02→21:41)
[2017-01-03] MEDS: AMLODIPINE 5 MG TABLET PO SCH (10:02)
[2017-01-03] MEDS: FERROUS GLUCONATE 324 MG TABLET PO SCH ×3 (10:02→21:41)
[2017-01-03] MEDS: LEVOTHYROXINE 100 MCG TABLET PO SCH (10:02)
[2017-01-03] MEDS: AMIODARONE 200 MG TABLET PO SCH (10:02)
[2017-01-03] MEDS: LIDODERM 5% PATCH TD SCH (10:03)
[2017-01-03] MEDS: FLUTICASONE/VILANTEROL 200-25MCG/INH INH SCH (10:03)
[2017-01-03 15:56] VITALS: BP 151/82
[2017-01-03] MEDS: ENOXAPARIN 40 MG/0.4 ML SQ SCH (16:26)
[2017-01-03] MEDS ORDERED: ARTIFICIAL TEARS OPHTH SOLN 15ML EACHEYE PRN (18:00)
[2017-01-03] MEDS ORDERED: IBUPROFEN 200 MG TABLET PO PRN (18:00)
[2017-01-03 19:27] VITALS: BP 137/66
[2017-01-03] MEDS: ATORVASTATIN 40 MG TABLET PO SCH ×2 (21:00→21:41)
[2017-01-03] MEDS ORDERED: OMNIPAQUE 350 MG/ML, 100ML BOTTLE ONE (23:21)
[2017-01-04] MEDS: MORPHINE SULFATE 4 MG/ML, 1ML IVPush PRN ×3 (01:00→12:18)
[2017-01-04 02:04] VITALS: BP 131/81
[2017-01-04 05:09] LABS: HEMATOCRIT 28.4 % (34.6-47.8); HEMOGLOBIN 9.3 g/dL (11.7-16.4); WHITE BLOOD COUNT 4.3 x10^3/uL (3.4-10)
[2017-01-04 05:39] LABS: ASPARTATE AMINO TRANSFERASE 33 U/L (15-37); BLOOD UREA NITROGEN 10 mg/dL (7-18)
[2017-01-04] MEDS: MEROPENEM 1 GM in SODIUM CHLORIDE 0.9% 50 ML IV SCH ×3 (05:58→22:01)
[2017-01-04] MEDS: SODIUM CHLORIDE 0.9% 1,000 ML IV SCH (05:58)
[2017-01-04] MEDS: INSULIN ASPART 100 UNITS/ML, PEN SQ-INSULIN SCH ×4 (07:00→22:00)
[2017-01-04 07:16] VITALS: BP 146/81
[2017-01-04] MEDS: POTASSIUM CHLORIDE 20 MEQ TAB.ER.PRT PO ONE ×2 (08:00→09:51)
[2017-01-04] MEDS ORDERED: MAGNESIUM SULFATE PMX 2GM/50ML 50 ML IV ONE (08:00)
[2017-01-04] MEDS: SENNA/DOCUSATE TABLET PO SCH (09:00)
[2017-01-04] MEDS: FERROUS GLUCONATE 324 MG TABLET PO SCH ×2 (09:00→21:00)
[2017-01-04] MEDS: FLUTICASONE/VILANTEROL 200-25MCG/INH INH SCH (09:00)
[2017-01-04] MEDS: INSULIN DETEMIR 100 UNITS/ML, PEN SQ-INSULIN SCH ×2 (09:49→22:00)
[2017-01-04] MEDS: AMIODARONE 200 MG TABLET PO SCH (09:51)
[2017-01-04] MEDS: CARVEDILOL 3.125 MG TABLET PO SCH ×2 (09:51→21:00)
[2017-01-04] MEDS: AMLODIPINE 5 MG TABLET PO SCH (09:52)
[2017-01-04] MEDS: PREGABALIN 100 MG CAPSULE PO SCH (09:52)
[2017-01-04] MEDS: LEVOTHYROXINE 100 MCG TABLET PO SCH (09:52)
[2017-01-04] MEDS: LIDODERM 5% PATCH TD SCH (10:09)
[2017-01-04] MEDS ORDERED: POTASSIUM CHLORIDE 40 MEQ in SODIUM CHLORIDE 0.9% 500 ML IV ONE (12:00)
[2017-01-04] MEDS ORDERED: ACETAMINOPHEN 650 MG SUPP PR PRN (12:00)
[2017-01-04] MEDS ORDERED: POTASSIUM CHLORIDE 10 MEQ in SODIUM CHLORIDE 0.45% 1,000 ML IV SCH (13:30)
[2017-01-04 14:18] VITALS: BP 147/82
[2017-01-04] MEDS ORDERED: GADOBUTROL 7.5 MMOL/7.5 ML PFS ONE (15:35)
[2017-01-04 16:01] VITALS: BP 142/80
[2017-01-04] MEDS: ENOXAPARIN 40 MG/0.4 ML SQ SCH (17:30)
[2017-01-04] MEDS ORDERED: PHARMACY MAY ADJ FOR RENAL FX MC PRN (18:30)
[2017-01-04] MEDS: D5%-0.45% NACL 1,000 ML IV SCH (18:32)
[2017-01-04] MEDS ORDERED: PREGABALIN 75 MG CAPSULE PO SCH (21:00)
[2017-01-04] MEDS: ATORVASTATIN 40 MG TABLET PO SCH (21:00)
[2017-01-04 21:45] VITALS: BP 148/82
[2017-01-04] MEDS ORDERED: NEO/POLY/HC OPHTH SUSP 7.5ML OP SCH (22:30)
[2017-01-04] MEDS: NYSTATIN 500,000 UNITS/5 ML UDC PO SCH (23:24)
[2017-01-04] MEDS: NEO/POLY/HC OPHTH SUSP 7.5ML EACHEYE SCH (23:27)
[2017-01-05] MEDS: MORPHINE SULFATE 4 MG/ML, 1ML IVPush PRN (02:29)
[2017-01-05 03:15] VITALS: BP 133/75
[2017-01-05 04:56] LABS: HEMOGLOBIN 9.7 g/dL (11.7-16.4); WHITE BLOOD COUNT 5.1 x10^3/uL (3.4-10)
[2017-01-05 05:01] LABS: BLOOD UREA NITROGEN 7 mg/dL (7-18)
[2017-01-05 05:05] LABS: ASPARTATE AMINO TRANSFERASE 49 U/L (15-37)
[2017-01-05] MEDS: NYSTATIN 500,000 UNITS/5 ML UDC PO SCH ×4 (05:05→21:34)
[2017-01-05] MEDS: NEO/POLY/HC OPHTH SUSP 7.5ML EACHEYE SCH ×5 (05:05→21:34)
[2017-01-05] MEDS: MEROPENEM 1 GM in SODIUM CHLORIDE 0.9% 50 ML IV SCH ×2 (05:06→16:40)
[2017-01-05 06:39] VITALS: BP 136/73
[2017-01-05] MEDS: INSULIN ASPART 100 UNITS/ML, PEN SQ-INSULIN SCH ×4 (07:57→21:33)
[2017-01-05] MEDS: LEVOTHYROXINE 100 MCG TABLET PO SCH (09:00)
[2017-01-05] MEDS: FLUTICASONE/VILANTEROL 200-25MCG/INH INH SCH (09:00)
[2017-01-05] MEDS: D5%-0.45% NACL 1,000 ML IV SCH (11:00)
[2017-01-05] MEDS: NYSTATIN/TRIAMCINOLONE CRM 15GM TP SCH ×3 (11:02→21:34)
[2017-01-05] MEDS: LIDODERM 5% PATCH TD SCH (11:02)
[2017-01-05] MEDS: INSULIN DETEMIR 100 UNITS/ML, PEN SQ-INSULIN SCH ×2 (11:03→21:33)
[2017-01-05] MEDS ORDERED: MAGNESIUM SULFATE PMX 2GM/50ML 50 ML IV ONE (12:00)
[2017-01-05 13:15] VITALS: BP 130/78
[2017-01-05] MEDS: CARVEDILOL 3.125 MG TABLET PO SCH ×2 (16:05→21:33)
[2017-01-05] MEDS: SENNA/DOCUSATE TABLET PO SCH (16:05)
[2017-01-05] MEDS: FERROUS GLUCONATE 324 MG TABLET PO SCH ×2 (16:05→21:34)
[2017-01-05] MEDS: PREGABALIN 75 MG CAPSULE PO SCH (16:05)
[2017-01-05] MEDS: AMLODIPINE 5 MG TABLET PO SCH (16:05)
[2017-01-05] MEDS: AMIODARONE 200 MG TABLET PO SCH (16:05)
[2017-01-05] MEDS: ENOXAPARIN 40 MG/0.4 ML SQ SCH (16:41)
[2017-01-05] MEDS: MEROPENEM 1 GM in SODIUM CHLORIDE 0.9% 100 ML IV SCH (16:45)
[2017-01-05] MEDS: POTASSIUM CHLORIDE 40 MEQ in D5%-0.45% NACL 1,000 ML IV SCH (18:31)
[2017-01-05] MEDS: ATORVASTATIN 40 MG TABLET PO SCH (21:33)
[2017-01-06] MEDS: NEO/POLY/HC OPHTH SUSP 7.5ML EACHEYE SCH ×6 (00:01→20:55)
[2017-01-06] MEDS: MEROPENEM 1 GM in SODIUM CHLORIDE 0.9% 100 ML IV SCH ×3 (00:01→17:56)
[2017-01-06 04:55] VITALS: BP 134/70
[2017-01-06] MEDS: LEVOTHYROXINE 100 MCG TABLET PO SCH (05:04)
[2017-01-06] MEDS: NYSTATIN 500,000 UNITS/5 ML UDC PO SCH ×3 (05:04→17:56)
[2017-01-06] MEDS: INSULIN ASPART 100 UNITS/ML, PEN SQ-INSULIN SCH ×4 (07:00→20:52)
[2017-01-06] MEDS: SENNA/DOCUSATE TABLET PO SCH (08:56)
[2017-01-06] MEDS: PREGABALIN 75 MG CAPSULE PO SCH (09:00)
[2017-01-06] MEDS: CARVEDILOL 3.125 MG TABLET PO SCH ×2 (09:00→20:55)
[2017-01-06] MEDS: AMLODIPINE 5 MG TABLET PO SCH (09:00)
[2017-01-06] MEDS: FERROUS GLUCONATE 324 MG TABLET PO SCH ×2 (09:00→20:53)
[2017-01-06] MEDS: AMIODARONE 200 MG TABLET PO SCH (09:00)
[2017-01-06] MEDS: LIDODERM 5% PATCH TD SCH (09:33)
[2017-01-06] MEDS: FLUTICASONE/VILANTEROL 200-25MCG/INH INH SCH (09:33)
[2017-01-06] MEDS: NYSTATIN/TRIAMCINOLONE CRM 15GM TP SCH ×3 (09:34→20:53)
[2017-01-06] MEDS: POTASSIUM CHLORIDE 40 MEQ in D5%-0.45% NACL 1,000 ML IV SCH (10:05)
[2017-01-06 13:49] LABS: HEMOGLOBIN 9.1 g/dL (11.7-16.4); WHITE BLOOD COUNT 6.1 x10^3/uL (3.4-10)
[2017-01-06 14:03] LABS: ASPARTATE AMINO TRANSFERASE 67 U/L (15-37); BLOOD UREA NITROGEN 11 mg/dL (7-18)
[2017-01-06] MEDS: INSULIN DETEMIR 100 UNITS/ML, PEN SQ-INSULIN SCH ×2 (14:07→20:53)
[2017-01-06 14:42] VITALS: BP 131/68
[2017-01-06] MEDS: ENOXAPARIN 40 MG/0.4 ML SQ SCH (17:56)
[2017-01-06 19:57] VITALS: BP 127/74
[2017-01-06] MEDS: ATORVASTATIN 40 MG TABLET PO SCH (20:53)
[2017-01-07] MEDS: POTASSIUM CHLORIDE 40 MEQ in D5%-0.45% NACL 1,000 ML IV SCH ×2 (00:04→11:18)
[2017-01-07] MEDS: NYSTATIN 500,000 UNITS/5 ML UDC PO SCH ×4 (00:04→18:11)
[2017-01-07] MEDS: NEO/POLY/HC OPHTH SUSP 7.5ML EACHEYE SCH ×7 (00:16→19:49)
[2017-01-07] MEDS: MEROPENEM 1 GM in SODIUM CHLORIDE 0.9% 100 ML IV SCH ×3 (02:54→19:52)
[2017-01-07 03:00] VITALS: BP 152/75
[2017-01-07 03:28] LABS: HEMATOCRIT 26.6 % (34.6-47.8); HEMOGLOBIN 8.4 g/dL (11.7-16.4); WHITE BLOOD COUNT 6.2 x10^3/uL (3.4-10)
[2017-01-07 03:38] LABS: BLOOD UREA NITROGEN 12 mg/dL (7-18)
[2017-01-07] MEDS: MORPHINE SULFATE 4 MG/ML, 1ML IVPush PRN (04:20)
[2017-01-07] MEDS: LEVOTHYROXINE 100 MCG TABLET PO SCH (06:09)
[2017-01-07] MEDS ORDERED: POTASSIUM CHLORIDE 10% 40 MEQ/30 ML UDC PO ONE (06:30)
[2017-01-07 08:54] VITALS: BP 136/66
[2017-01-07] MEDS: SENNA/DOCUSATE TABLET PO SCH (09:00)
[2017-01-07] MEDS: INSULIN ASPART 100 UNITS/ML, PEN SQ-INSULIN SCH ×4 (09:06→19:51)
[2017-01-07] MEDS: INSULIN DETEMIR 100 UNITS/ML, PEN SQ-INSULIN SCH ×2 (09:07→19:52)
[2017-01-07] MEDS: AMIODARONE 200 MG TABLET PO SCH (09:07)
[2017-01-07] MEDS: FLUTICASONE/VILANTEROL 200-25MCG/INH INH SCH (09:07)
[2017-01-07] MEDS: CARVEDILOL 3.125 MG TABLET PO SCH ×2 (09:08→20:20)
[2017-01-07] MEDS: FERROUS GLUCONATE 324 MG TABLET PO SCH ×2 (09:08→20:20)
[2017-01-07] MEDS: PREGABALIN 75 MG CAPSULE PO SCH (09:08)
[2017-01-07] MEDS: LIDODERM 5% PATCH TD SCH (09:09)
[2017-01-07] MEDS: NYSTATIN/TRIAMCINOLONE CRM 15GM TP SCH ×3 (09:09→19:53)
[2017-01-07] MEDS: AMLODIPINE 5 MG TABLET PO SCH (09:30)
[2017-01-07] MEDS ORDERED: OXYcodone IR 5MG TABLET PO PRN (12:00)
[2017-01-07 14:02] VITALS: BP 136/81
[2017-01-07] MEDS: ENOXAPARIN 40 MG/0.4 ML SQ SCH (18:10)
[2017-01-07] MEDS ORDERED: ARTIFICIAL TEARS OPHTH SOLN 15ML EACHEYE PRN (19:00)
[2017-01-07] MEDS ORDERED: ONDANSETRON 2MG/ML, 2ML IVPush PRN (19:00)
[2017-01-07] MEDS ORDERED: ACETAMINOPHEN 650 MG SUPP PR PRN (19:00)
[2017-01-07] MEDS ORDERED: POLYETHYLENE GLYCOL 17 GM PACKET PO PRN (19:00)
[2017-01-07] MEDS ORDERED: PHARMACY MAY ADJ FOR RENAL FX MC PRN (19:00)
[2017-01-07] MEDS ORDERED: LABETALOL 5MG/ML, 20ML IVPush PRN (19:00)
[2017-01-07 19:41] VITALS: BP 160/75
[2017-01-07] MEDS: ATORVASTATIN 40 MG TABLET PO SCH (20:21)
[2017-01-08] MEDS: NYSTATIN 500,000 UNITS/5 ML UDC PO SCH ×4 (00:04→18:38)
[2017-01-08] MEDS: NEO/POLY/HC OPHTH SUSP 7.5ML EACHEYE SCH ×5 (00:04→20:54)
[2017-01-08 01:23] VITALS: BP 165/73
[2017-01-08] MEDS: MEROPENEM 1 GM in SODIUM CHLORIDE 0.9% 100 ML IV SCH ×3 (03:32→18:38)
[2017-01-08] MEDS: LEVOTHYROXINE 100 MCG TABLET PO SCH (05:35)
[2017-01-08] MEDS: OXYcodone IR 5MG TABLET PO PRN ×2 (05:48→11:32)
[2017-01-08] MEDS: INSULIN ASPART 100 UNITS/ML, PEN SQ-INSULIN SCH ×4 (07:00→20:54)
[2017-01-08 07:46] VITALS: BP 156/80
[2017-01-08 08:37] LABS: HEMATOCRIT 29.3 % (34.6-47.8); HEMOGLOBIN 9.4 g/dL (11.7-16.4); WHITE BLOOD COUNT 6.3 x10^3/uL (3.4-10)
[2017-01-08 08:47] LABS: ASPARTATE AMINO TRANSFERASE 28 U/L (15-37); BLOOD UREA NITROGEN 10 mg/dL (7-18)
[2017-01-08] MEDS: SENNA/DOCUSATE TABLET PO SCH (09:00)
[2017-01-08] MEDS ORDERED: POTASSIUM CHLORIDE 20 MEQ TAB.ER.PRT PO ONE (10:30)
[2017-01-08] MEDS: FLUTICASONE/VILANTEROL 200-25MCG/INH INH SCH (10:54)
[2017-01-08] MEDS: INSULIN DETEMIR 100 UNITS/ML, PEN SQ-INSULIN SCH ×2 (10:55→20:53)
[2017-01-08] MEDS: FERROUS GLUCONATE 324 MG TABLET PO SCH ×2 (10:57→20:53)
[2017-01-08] MEDS: AMLODIPINE 5 MG TABLET PO SCH (10:57)
[2017-01-08] MEDS: AMIODARONE 200 MG TABLET PO SCH (10:57)
[2017-01-08] MEDS: PREGABALIN 75 MG CAPSULE PO SCH (10:57)
[2017-01-08] MEDS: CARVEDILOL 3.125 MG TABLET PO SCH ×2 (10:57→20:53)
[2017-01-08] MEDS: LIDODERM 5% PATCH TD SCH ×2 (11:00→11:23)
[2017-01-08] MEDS: NYSTATIN/TRIAMCINOLONE CRM 15GM TP SCH ×3 (11:01→20:54)
[2017-01-08 13:34] VITALS: BP 151/82
[2017-01-08] MEDS: ENOXAPARIN 40 MG/0.4 ML SQ SCH (18:38)
[2017-01-08 19:49] VITALS: BP 167/86
[2017-01-08] MEDS: ATORVASTATIN 40 MG TABLET PO SCH (20:52)
[2017-01-09] MEDS: NYSTATIN 500,000 UNITS/5 ML UDC PO SCH ×4 (00:45→17:58)
[2017-01-09] MEDS: NEO/POLY/HC OPHTH SUSP 7.5ML EACHEYE SCH ×5 (00:45→17:59)
[2017-01-09 01:20] VITALS: BP 162/80
[2017-01-09] MEDS: MEROPENEM 1 GM in SODIUM CHLORIDE 0.9% 100 ML IV SCH ×2 (03:24→12:21)
[2017-01-09] MEDS: LEVOTHYROXINE 100 MCG TABLET PO SCH (06:00)
[2017-01-09 06:48] VITALS: BP 162/82
[2017-01-09] MEDS: INSULIN ASPART 100 UNITS/ML, PEN SQ-INSULIN SCH ×3 (07:00→17:59)
[2017-01-09] MEDS: SENNA/DOCUSATE TABLET PO SCH (09:00)
[2017-01-09] MEDS: FLUTICASONE/VILANTEROL 200-25MCG/INH INH SCH (09:57)
[2017-01-09] MEDS: CARVEDILOL 3.125 MG TABLET PO SCH (09:58)
[2017-01-09] MEDS: FERROUS GLUCONATE 324 MG TABLET PO SCH (09:58)
[2017-01-09] MEDS: PREGABALIN 75 MG CAPSULE PO SCH (09:58)
[2017-01-09] MEDS: AMIODARONE 200 MG TABLET PO SCH (09:58)
[2017-01-09] MEDS: INSULIN DETEMIR 100 UNITS/ML, PEN SQ-INSULIN SCH (09:59)
[2017-01-09] MEDS: OXYcodone IR 5MG TABLET PO PRN (09:59)
[2017-01-09] MEDS: AMLODIPINE 5 MG TABLET PO SCH (10:00)
[2017-01-09] MEDS: LIDODERM 5% PATCH TD SCH (10:01)
[2017-01-09] MEDS: NYSTATIN/TRIAMCINOLONE CRM 15GM TP SCH ×2 (10:01→17:59)
[2017-01-09 10:49] LABS: BLOOD UREA NITROGEN 11 mg/dL (7-18)
[2017-01-09 10:50] LABS: HEMATOCRIT 33.1 % (34.6-47.8); HEMOGLOBIN 10.4 g/dL (11.7-16.4); WHITE BLOOD COUNT 7.8 x10^3/uL (3.4-10)
[2017-01-09 14:05] VITALS: BP 148/81
[2017-01-09] MEDS ORDERED: PEG15DRO4 EACHEYE (14:45)
[2017-01-09] MEDS ORDERED: INSU100I28 SQ-INSULIN (14:45)
[2017-01-09] MEDS ORDERED: NYST1000 PO (14:45)
[2017-01-09] MEDS ORDERED: POTA20PA25 PO (14:45)
[2017-01-09] MEDS ORDERED: OXYC5TAB3 PO (14:45)
[2017-01-09] MEDS ORDERED: PREG75CA PO (14:45)
[2017-01-09] MEDS ORDERED: POTASSIUM CHLORIDE 20 MEQ TAB.ER.PRT PO ONE (15:30)
[2017-01-09] MEDS: ENOXAPARIN 40 MG/0.4 ML SQ SCH (17:37)
== END 2017-01-09 18:26 | DRG 70 ==
LOC: ED 13:51 → EDIP 14:59 → 3NW 17:40 → 4NOR 01-03 00:36 → 3NE 01-04 15:47
PROVIDERS: ADMIT Hospitalist; ATTEND Hospitalist
PROC: 30233N1 Transfusion of Nonautologous Red Blood Cells into Peripheral Vein, Percutaneous Approach (ICD-10-PCS; 2016-12-24)
PROC: 02HV33Z Insertion of Infusion Device into Superior Vena Cava, Percutaneous Approach (ICD-10-PCS; principal; 2017-01-03)
PROC: B548ZZA Ultrasonography of Superior Vena Cava, Guidance (ICD-10-PCS; 2017-01-03)
PROC: B5181ZA Fluoroscopy of Superior Vena Cava using Low Osmolar Contrast, Guidance (ICD-10-PCS; 2017-01-03)
DX: G93.41 Metabolic encephalopathy (principal); N17.0 Acute kidney failure with tubular necrosis; J96.10 Chronic respiratory failure, unspecified whether with hypoxia or hypercapnia; E44.0 Moderate protein-calorie malnutrition; E87.0 Hyperosmolality and hypernatremia; E87.2 Acidosis; D68.59 Other primary thrombophilia; I48.2 Chronic atrial fibrillation; I50.32 Chronic diastolic (congestive) heart failure; I11.0 Hypertensive heart disease with heart failure; F03.90 Unspecified dementia, unspecified severity, without behavioral disturbance, psychotic disturbance, mood disturbance, and anxiety; R53.2 Functional quadriplegia; D62 Acute posthemorrhagic anemia; L03.90 Cellulitis, unspecified; I13.0 Hypertensive heart and chronic kidney disease with heart failure and stage 1 through stage 4 chronic kidney disease, or unspecified chronic kidney disease; N30.00 Acute cystitis without hematuria; S20.212A Contusion of left front wall of thorax, initial encounter; E11.22 Type 2 diabetes mellitus with diabetic chronic kidney disease; Z88.6 Allergy status to analgesic agent; Z88.0 Allergy status to penicillin; Z88.2 Allergy status to sulfonamides; Z88.8 Allergy status to other drugs, medicaments and biological substances; Z91.048 Other nonmedicinal substance allergy status; Z87.440 Personal history of urinary (tract) infections; E11.9 Type 2 diabetes mellitus without complications; I25.2 Old myocardial infarction; E03.9 Hypothyroidism, unspecified; M19.90 Unspecified osteoarthritis, unspecified site; D50.9 Iron deficiency anemia, unspecified; D75.89 Other specified diseases of blood and blood-forming organs; E11.65 Type 2 diabetes mellitus with hyperglycemia; E78.00 Pure hypercholesterolemia, unspecified; E78.5 Hyperlipidemia, unspecified; E87.6 Hypokalemia; G89.29 Other chronic pain; H70.93 Unspecified mastoiditis, bilateral; I25.10 Atherosclerotic heart disease of native coronary artery without angina pectoris; K21.9 Gastro-esophageal reflux disease without esophagitis; M06.9 Rheumatoid arthritis, unspecified; M10.9 Gout, unspecified; M79.7 Fibromyalgia; N18.9 Chronic kidney disease, unspecified; Z16.12 Extended spectrum beta lactamase (ESBL) resistance; Z79.01 Long term (current) use of anticoagulants; Z79.4 Long term (current) use of insulin; Z80.7 Family history of other malignant neoplasms of lymphoid, hematopoietic and related tissues; Z98.49 Cataract extraction status, unspecified eye; Z90.49 Acquired absence of other specified parts of digestive tract; Z84.89 Family history of other specified conditions; Z86.718 Personal history of other venous thrombosis and embolism; Z86.73 Personal history of transient ischemic attack (TIA), and cerebral infarction without residual deficits; Z87.442 Personal history of urinary calculi; Z90.13 Acquired absence of bilateral breasts and nipples; Z99.3 Dependence on wheelchair; F32.9 Major depressive disorder, single episode, unspecified; S40.022A Contusion of left upper arm, initial encounter; X58.XXXA Exposure to other specified factors, initial encounter; Y93.9 Activity, unspecified; Y92.89 Other specified places as the place of occurrence of the external cause; Y99.9 Unspecified external cause status; M79.81 Nontraumatic hematoma of soft tissue; T45.515A Adverse effect of anticoagulants, initial encounter
CPT/HCPCS: 36415; 36569; 70450; 70553; 71010; 71250; 74000; 76700; 76937; 77001; 80048; 80053; 81001; 81003; 82040; 82140; 82533; 82607; 82746; 82962; 83036; 83605; 83735; 84100; 84439; 84443; 84550; 85014; 85018; 85025; 85610; 85651; 86140; 86850; 86900; 86902; 86922; 86923; 87040; 87077; 87086; 87186; 87324; 93005; 93970; 95819; 96361; 96365; 96375; A9585; J0713; J1335; J1650; J1815; J2185; J3370; J3480; J7042; Q9967; C1751; J3475; J7030; J7040; J7050; J7512; P9016

== ENCOUNTER 2017-01-27 13:20 | Inpatient (IN) | payer MEDICARE, MEDICAID ==
[~2017-01-27] VITALS: Ht 157.5 cm; Wt 69.8 kg
[~2017-01-27 13:20] MED LIST changes: +NITR100C56 PO; +NYST1000 PO; +OXYC5TAB3 PO; +PEG15DRO4 EACHEYE; +POTA20PA25 PO; +PREG75CA PO
[2017-01-27] MEDS ORDERED: SODIUM CHLORIDE 0.9% 1,000ML IVBOLUS ONE (13:30)
[2017-01-27] MEDS ORDERED: SODIUM CHLORIDE FLUSH 10ML SYR IVF ONE (13:30)
[2017-01-27 14:18] LABS: HEMATOCRIT 33.7 % (34.6-47.8); HEMOGLOBIN 11.1 g/dL (11.7-16.4); WHITE BLOOD COUNT 11.6 x10^3/uL (3.4-10)
[2017-01-27 14:30] LABS: ASPARTATE AMINO TRANSFERASE 22 U/L (15-37); BLOOD UREA NITROGEN 53 mg/dL (7-18)
[2017-01-27 14:38] LABS: IS PT STATUS REG ER OR PRE ER? YES
[2017-01-27 19:16] VITALS: BP 144/77
[2017-01-27 19:48] LABS: BLOOD UREA NITROGEN 46 mg/dL (7-18)
[2017-01-27] MEDS ORDERED: POTASSIUM CHLORIDE 10 MEQ in D5%-0.45% NACL 1,000 ML IV SCH (20:29)
[2017-01-27] MEDS ORDERED: ENOXAPARIN 40 MG/0.4 ML SQ SCH (20:30)
[2017-01-27] MEDS ORDERED: ONDANSETRON 2MG/ML, 2ML IVPush PRN (20:30)
[2017-01-27] MEDS ORDERED: PHARMACY MAY ADJ FOR RENAL FX MC PRN (20:30)
[2017-01-27] MEDS: FERROUS SULFATE 325 MG TABLET PO SCH (21:15)
[2017-01-27] MEDS: CARVEDILOL 3.125 MG TABLET PO SCH (21:15)
[2017-01-27] MEDS: MEROPENEM 1 GM in SODIUM CHLORIDE 0.9% 100 ML IV SCH (23:14)
[2017-01-27] MEDS: LIDODERM 5% PATCH TD SCH (23:15)
[2017-01-28 00:11] LABS: BLOOD UREA NITROGEN 46 mg/dL (7-18)
[2017-01-28 01:15] VITALS: BP 143/65
[2017-01-28] MEDS ORDERED: ALBUTEROL/IPRATROPIUM 2.5MG/0.5MG, 3 ML NPPB PRN ×2 (02:00→20:00)
[2017-01-28] MEDS: OXYcodone IR 5MG TABLET PO PRN ×2 (04:07→11:13)
[2017-01-28 06:12] LABS: BLOOD UREA NITROGEN 43 mg/dL (7-18)
[2017-01-28 06:14] LABS: HEMATOCRIT 33.7 % (34.6-47.8); WHITE BLOOD COUNT 9.9 x10^3/uL (3.4-10)
[2017-01-28 06:24] LABS: ASPARTATE AMINO TRANSFERASE 19 U/L (15-37)
[2017-01-28 06:50] VITALS: BP 160/70
[2017-01-28] MEDS: CARVEDILOL 3.125 MG TABLET PO SCH ×2 (08:01→21:46)
[2017-01-28] MEDS: MEROPENEM 1 GM in SODIUM CHLORIDE 0.9% 100 ML IV SCH ×3 (08:01→23:44)
[2017-01-28] MEDS: FERROUS SULFATE 325 MG TABLET PO SCH ×2 (08:01→21:46)
[2017-01-28] MEDS: LEVOTHYROXINE 100 MCG TABLET PO SCH (08:01)
[2017-01-28] MEDS: PREGABALIN 75 MG CAPSULE PO SCH (08:01)
[2017-01-28] MEDS: AMIODARONE 200 MG TABLET PO SCH (08:02)
[2017-01-28] MEDS: AMLODIPINE 5 MG TABLET PO SCH (08:02)
[2017-01-28] MEDS ORDERED: DEXTROSE 50%, 50ML SYRINGE IVPush PRN ×2 (08:30→20:00)
[2017-01-28] MEDS ORDERED: GLUCAGON 1 MG IM PRN ×2 (08:30→20:00)
[2017-01-28] MEDS ORDERED: DEXTROSE 4 GM TAB.CHEW PO PRN ×2 (08:30→20:00)
[2017-01-28] MEDS ORDERED: SODIUM CHLORIDE FLUSH 10ML SYR IVF SCH (09:00)
[2017-01-28] MEDS: INSULIN ASPART 100 UNITS/ML, PEN SQ-INSULIN SCH ×3 (11:00→21:46)
[2017-01-28 13:00] LABS: BLOOD UREA NITROGEN 38 mg/dL (7-18)
[2017-01-28 14:01] VITALS: BP 84/32
[2017-01-28] MEDS: LIDODERM 5% PATCH TD SCH (14:58)
[2017-01-28 15:09] VITALS: BP 89/41
[2017-01-28 16:52] LABS: BLOOD UREA NITROGEN 40 mg/dL (7-18)
[2017-01-28 17:17] LABS: IS PT STATUS REG ER OR PRE ER? NO
[2017-01-28 17:54] VITALS: BP 98/59
[2017-01-28] MEDS ORDERED: PANTOPRAZOLE 40 MG IV IVPush SCH (18:30)
[2017-01-28] MEDS ORDERED: ACETAMINOPHEN 325 MG TABLET PO PRN (18:30)
[2017-01-28 20:00] VITALS: BP 106/59
[2017-01-28] MEDS ORDERED: PHARMACY MAY ADJ FOR RENAL FX MC PRN (20:00)
[2017-01-28] MEDS ORDERED: ONDANSETRON 2MG/ML, 2ML IVPush PRN (20:00)
[2017-01-28] MEDS ORDERED: POTASSIUM CHLORIDE 10 MEQ in D5%-0.45% NACL 1,000 ML IV SCH (20:29)
[2017-01-28 21:05] LABS: BLOOD UREA NITROGEN 37 mg/dL (7-18)
[2017-01-28 21:09] LABS: IS PT STATUS REG ER OR PRE ER? NO
[2017-01-28] MEDS: PANTOPRAZOLE 40 MG IV IVPush SCH (21:15)
[2017-01-28] MEDS: ENOXAPARIN 30 MG/0.3 ML SQ SCH (21:30)
[2017-01-28] MEDS: POTASSIUM CHLORIDE 10 MEQ in D5%-0.45% NACL 1,000 ML IV SCH (21:45)
[2017-01-28] MEDS: SODIUM CHLORIDE FLUSH 10ML SYR IVF SCH (21:46)
[2017-01-29 00:21] LABS: BLOOD UREA NITROGEN 37 mg/dL (7-18)
[2017-01-29 02:38] VITALS: BP 111/48
[2017-01-29] MEDS: POTASSIUM CHLORIDE 10 MEQ in D5%-0.45% NACL 1,000 ML IV SCH (06:08)
[2017-01-29] MEDS: INSULIN ASPART 100 UNITS/ML, PEN SQ-INSULIN SCH ×4 (07:00→21:52)
[2017-01-29 07:09] LABS: HEMATOCRIT 28.2 % (34.6-47.8); HEMOGLOBIN 9.3 g/dL (11.7-16.4); WHITE BLOOD COUNT 6.3 x10^3/uL (3.4-10)
[2017-01-29 07:12] LABS: BLOOD UREA NITROGEN 32 mg/dL (7-18)
[2017-01-29 07:18] LABS: ASPARTATE AMINO TRANSFERASE 19 U/L (15-37)
[2017-01-29 07:19] LABS: IS PT STATUS REG ER OR PRE ER? NO
[2017-01-29] MEDS: PANTOPRAZOLE 40 MG IV IVPush SCH ×2 (07:43→21:51)
[2017-01-29] MEDS: SODIUM CHLORIDE FLUSH 10ML SYR IVF SCH ×2 (07:44→21:52)
[2017-01-29] MEDS: AMIODARONE 200 MG TABLET PO SCH (07:44)
[2017-01-29] MEDS: LEVOTHYROXINE 100 MCG TABLET PO SCH (07:44)
[2017-01-29] MEDS: FERROUS SULFATE 325 MG TABLET PO SCH ×2 (07:44→21:51)
[2017-01-29] MEDS: MEROPENEM 1 GM in SODIUM CHLORIDE 0.9% 100 ML IV SCH ×2 (07:44→20:00)
[2017-01-29 07:45] VITALS: BP 134/75
[2017-01-29] MEDS: AMLODIPINE 5 MG TABLET PO SCH (07:45)
[2017-01-29] MEDS: PREGABALIN 75 MG CAPSULE PO SCH (07:45)
[2017-01-29] MEDS: CARVEDILOL 3.125 MG TABLET PO SCH ×2 (07:45→21:51)
[2017-01-29] MEDS: ACETAMINOPHEN 325 MG TABLET PO PRN (10:06)
[2017-01-29 11:16] LABS: IS PT STATUS REG ER OR PRE ER? NO
[2017-01-29] MEDS ORDERED: MAGNESIUM SULFATE PMX 4GM/100M 100 ML IV ONE (11:30)
[2017-01-29] MEDS: POTASSIUM ACID PHOSPHATE 500 MG TABLET.SOL PO SCH ×3 (12:20→23:23)
[2017-01-29] MEDS: OXYcodone IR 5MG TABLET PO PRN (12:20)
[2017-01-29 14:19] LABS: BLOOD UREA NITROGEN 26 mg/dL (7-18)
[2017-01-29] MEDS: VANCOMYCIN 50 MG/ML ORAL SUSP PO SCH ×2 (14:39→21:52)
[2017-01-29 14:45] VITALS: BP 119/74
[2017-01-29] MEDS: LACTOBACILLUS CHEW TABLET PO SCH ×2 (17:19→21:51)
[2017-01-29 19:37] VITALS: BP 106/61
[2017-01-29] MEDS: LIDODERM 5% PATCH TD SCH (21:24)
[2017-01-29] MEDS: ENOXAPARIN 30 MG/0.3 ML SQ SCH (21:51)
[2017-01-29 23:58] LABS: BLOOD UREA NITROGEN 22 mg/dL (7-18)
[2017-01-30 01:46] VITALS: BP 121/71
[2017-01-30] MEDS: VANCOMYCIN 50 MG/ML ORAL SUSP PO SCH ×4 (03:53→21:53)
[2017-01-30] MEDS: POTASSIUM ACID PHOSPHATE 500 MG TABLET.SOL PO SCH (03:53)
[2017-01-30 05:50] LABS: BLOOD UREA NITROGEN 19 mg/dL (7-18)
[2017-01-30 06:03] LABS: HEMATOCRIT 28.1 % (34.6-47.8); HEMOGLOBIN 9.3 g/dL (11.7-16.4); WHITE BLOOD COUNT 5.9 x10^3/uL (3.4-10)
[2017-01-30] MEDS: INSULIN ASPART 100 UNITS/ML, PEN SQ-INSULIN SCH ×4 (07:00→21:00)
[2017-01-30] MEDS: SODIUM CHLORIDE FLUSH 10ML SYR IVF SCH ×2 (08:05→21:52)
[2017-01-30] MEDS: MEROPENEM 1 GM in SODIUM CHLORIDE 0.9% 100 ML IV SCH ×2 (08:05→21:52)
[2017-01-30] MEDS: PANTOPRAZOLE 40 MG IV IVPush SCH ×2 (08:05→21:52)
[2017-01-30] MEDS: CARVEDILOL 3.125 MG TABLET PO SCH ×2 (08:06→21:52)
[2017-01-30] MEDS: MAGNESIUM OXIDE 400 MG TABLET PO SCH (08:06)
[2017-01-30] MEDS: AMLODIPINE 5 MG TABLET PO SCH (08:06)
[2017-01-30] MEDS: FERROUS SULFATE 325 MG TABLET PO SCH ×2 (08:06→21:52)
[2017-01-30] MEDS: PREGABALIN 75 MG CAPSULE PO SCH (08:06)
[2017-01-30] MEDS: LACTOBACILLUS CHEW TABLET PO SCH ×3 (08:06→21:52)
[2017-01-30] MEDS: AMIODARONE 200 MG TABLET PO SCH (08:06)
[2017-01-30] MEDS: LEVOTHYROXINE 100 MCG TABLET PO SCH (08:06)
[2017-01-30 08:07] VITALS: BP 150/81
[2017-01-30] MEDS ORDERED: MAGNESIUM SULFATE PMX 4GM/100M 100 ML IV ONE (08:30)
[2017-01-30] MEDS ORDERED: POTASSIUM PHOSPHATE 44 MEQ in SODIUM CHLORIDE 0.9% 500 ML IV ONE (08:30)
[2017-01-30 14:00] VITALS: BP 134/76
[2017-01-30 19:35] VITALS: BP 150/75
[2017-01-30] MEDS ORDERED: POTASSIUM CHLORIDE 10 MEQ in D5%-0.45% NACL 1,000 ML IV SCH (20:29)
[2017-01-30] MEDS: LIDODERM 5% PATCH TD SCH (21:52)
[2017-01-30] MEDS: ENOXAPARIN 40 MG/0.4 ML SQ SCH (21:53)
[2017-01-31 02:05] VITALS: BP 133/66
[2017-01-31] MEDS: VANCOMYCIN 50 MG/ML ORAL SUSP PO SCH ×3 (05:05→16:51)
[2017-01-31 05:41] LABS: WHITE BLOOD COUNT 4.9 x10^3/uL (3.4-10)
[2017-01-31 05:52] LABS: BLOOD UREA NITROGEN 16 mg/dL (7-18)
[2017-01-31] MEDS: INSULIN ASPART 100 UNITS/ML, PEN SQ-INSULIN SCH ×4 (07:00→21:00)
[2017-01-31 07:05] VITALS: BP 161/77
[2017-01-31] MEDS: PANTOPRAZOLE 40 MG IV IVPush SCH ×2 (08:28→21:48)
[2017-01-31] MEDS: LACTOBACILLUS CHEW TABLET PO SCH ×3 (08:29→21:49)
[2017-01-31] MEDS: CARVEDILOL 3.125 MG TABLET PO SCH ×2 (08:29→21:49)
[2017-01-31] MEDS: PREGABALIN 75 MG CAPSULE PO SCH (08:29)
[2017-01-31] MEDS: AMIODARONE 200 MG TABLET PO SCH (08:29)
[2017-01-31] MEDS: FERROUS SULFATE 325 MG TABLET PO SCH ×2 (08:29→21:49)
[2017-01-31] MEDS: SODIUM CHLORIDE FLUSH 10ML SYR IVF SCH ×2 (08:29→21:00)
[2017-01-31] MEDS: MEROPENEM 1 GM in SODIUM CHLORIDE 0.9% 100 ML IV SCH (08:29)
[2017-01-31] MEDS: AMLODIPINE 5 MG TABLET PO SCH (08:30)
[2017-01-31] MEDS: LEVOTHYROXINE 100 MCG TABLET PO SCH (08:30)
[2017-01-31] MEDS: MAGNESIUM OXIDE 400 MG TABLET PO SCH (08:30)
[2017-01-31 12:51] VITALS: BP 134/70
[2017-01-31 15:06] VITALS: BP 148/72
[2017-01-31] MEDS: LINEZOLID PMX 600MG/300ML 300 ML IV SCH (15:19)
[2017-01-31 19:11] VITALS: BP 159/89
[2017-01-31] MEDS: ENOXAPARIN 40 MG/0.4 ML SQ SCH (21:48)
[2017-01-31] MEDS: FLUCONAZOLE 200 MG TABLET PO SCH (21:48)
[2017-01-31] MEDS: LIDODERM 5% PATCH TD SCH (21:49)
[2017-02-01] MEDS: VANCOMYCIN 50 MG/ML ORAL SUSP PO SCH ×4 (01:12→20:44)
[2017-02-01 02:07] VITALS: BP 172/74
[2017-02-01] MEDS: LINEZOLID PMX 600MG/300ML 300 ML IV SCH ×2 (03:30→16:50)
[2017-02-01] MEDS: INSULIN ASPART 100 UNITS/ML, PEN SQ-INSULIN SCH ×4 (07:00→21:00)
[2017-02-01 07:01] VITALS: BP 167/77
[2017-02-01] MEDS: AMLODIPINE 5 MG TABLET PO SCH (08:36)
[2017-02-01] MEDS: LEVOTHYROXINE 100 MCG TABLET PO SCH (08:36)
[2017-02-01] MEDS: AMIODARONE 200 MG TABLET PO SCH (08:37)
[2017-02-01] MEDS: MAGNESIUM OXIDE 400 MG TABLET PO SCH (08:37)
[2017-02-01] MEDS: FERROUS SULFATE 325 MG TABLET PO SCH ×2 (08:37→20:44)
[2017-02-01] MEDS: PANTOPRAZOLE 40 MG IV IVPush SCH (08:37)
[2017-02-01] MEDS: CARVEDILOL 3.125 MG TABLET PO SCH ×2 (08:37→20:44)
[2017-02-01] MEDS: LACTOBACILLUS CHEW TABLET PO SCH ×3 (08:37→20:45)
[2017-02-01] MEDS: SODIUM CHLORIDE FLUSH 10ML SYR IVF SCH ×2 (08:38→20:47)
[2017-02-01 08:49] LABS: BLOOD UREA NITROGEN 10 mg/dL (7-18)
[2017-02-01] MEDS: PREGABALIN 75 MG CAPSULE PO SCH (11:46)
[2017-02-01] MEDS: ACETAMINOPHEN 325 MG TABLET PO PRN (11:50)
[2017-02-01] MEDS ORDERED: MAGNESIUM SULFATE PMX 4GM/100M 100 ML IV ONE (12:00)
[2017-02-01 12:38] VITALS: BP 130/78
[2017-02-01] MEDS: POTASSIUM CHLORIDE 20 MEQ TAB.ER.PRT PO SCH (16:51)
[2017-02-01] MEDS: FLUCONAZOLE 200 MG TABLET PO SCH (20:44)
[2017-02-01] MEDS: ENOXAPARIN 40 MG/0.4 ML SQ SCH (20:45)
[2017-02-01] MEDS: LIDODERM 5% PATCH TD SCH (20:47)
[2017-02-01 21:00] VITALS: BP 138/79
[2017-02-01] MEDS: ESTROGENS CONJUGATED VAG CRM 0.625MG/1G, 30GM VG SCH (23:00)
[2017-02-02 01:29] VITALS: BP 160/87
[2017-02-02] MEDS: VANCOMYCIN 50 MG/ML ORAL SUSP PO SCH ×4 (03:19→20:41)
[2017-02-02] MEDS: LINEZOLID PMX 600MG/300ML 300 ML IV SCH ×2 (05:18→17:32)
[2017-02-02 06:14] LABS: BLOOD UREA NITROGEN 11 mg/dL (7-18); HEMATOCRIT 33.7 % (34.6-47.8); HEMOGLOBIN 11.1 g/dL (11.7-16.4); WHITE BLOOD COUNT 5.3 x10^3/uL (3.4-10)
[2017-02-02] MEDS: INSULIN ASPART 100 UNITS/ML, PEN SQ-INSULIN SCH ×4 (07:00→21:16)
[2017-02-02] MEDS: PANTOPROZOLE 40MG TABLET PO SCH (07:30)
[2017-02-02 09:00] VITALS: BP 128/76
[2017-02-02] MEDS: FERROUS SULFATE 325 MG TABLET PO SCH ×2 (09:02→20:42)
[2017-02-02] MEDS: POTASSIUM CHLORIDE 20 MEQ TAB.ER.PRT PO SCH ×2 (09:02→17:34)
[2017-02-02] MEDS: CARVEDILOL 3.125 MG TABLET PO SCH ×2 (09:02→20:42)
[2017-02-02] MEDS: PREGABALIN 75 MG CAPSULE PO SCH (09:02)
[2017-02-02] MEDS: AMLODIPINE 5 MG TABLET PO SCH (09:03)
[2017-02-02] MEDS: MAGNESIUM OXIDE 400 MG TABLET PO SCH (09:03)
[2017-02-02] MEDS: LEVOTHYROXINE 100 MCG TABLET PO SCH (09:03)
[2017-02-02] MEDS: LACTOBACILLUS CHEW TABLET PO SCH ×3 (09:03→20:42)
[2017-02-02] MEDS: AMIODARONE 200 MG TABLET PO SCH (09:03)
[2017-02-02] MEDS: SODIUM CHLORIDE FLUSH 10ML SYR IVF SCH ×2 (09:03→20:42)
[2017-02-02 11:29] LABS: RHEUMATOID FACTOR SCREEN NEGATIVE (NEGATIVE)
[2017-02-02 14:00] VITALS: BP 169/74
[2017-02-02 19:21] VITALS: BP 129/79
[2017-02-02] MEDS: ESTROGENS CONJUGATED VAG CRM 0.625MG/1G, 30GM VG SCH (20:41)
[2017-02-02] MEDS: FLUCONAZOLE 200 MG TABLET PO SCH (20:42)
[2017-02-02] MEDS: ENOXAPARIN 40 MG/0.4 ML SQ SCH (20:42)
[2017-02-02] MEDS: LIDODERM 5% PATCH TD SCH (20:44)
[2017-02-03 01:12] VITALS: BP 131/76
[2017-02-03] MEDS: VANCOMYCIN 50 MG/ML ORAL SUSP PO SCH ×3 (03:04→18:46)
[2017-02-03] MEDS: LINEZOLID PMX 600MG/300ML 300 ML IV SCH ×2 (04:48→17:07)
[2017-02-03] MEDS: INSULIN ASPART 100 UNITS/ML, PEN SQ-INSULIN SCH ×3 (07:00→17:09)
[2017-02-03 08:00] VITALS: BP 166/85
[2017-02-03] MEDS ORDERED: VANC1VIA3 PO (10:40)
[2017-02-03] MEDS ORDERED: MAGN400T26 PO (10:40)
[2017-02-03] MEDS ORDERED: ESTR30CR VG (10:40)
[2017-02-03] MEDS ORDERED: FLUC200T PO (10:40)
[2017-02-03] MEDS ORDERED: ACID1TAB7 PO (10:40)
[2017-02-03] MEDS ORDERED: PANT40TA5 PO (10:40)
[2017-02-03] MEDS ORDERED: Lidoderm 5% Patch TD (10:40)
[2017-02-03] MEDS ORDERED: LINE600I14 IV (10:42)
[2017-02-03] MEDS: AMIODARONE 200 MG TABLET PO SCH (12:57)
[2017-02-03] MEDS: LACTOBACILLUS CHEW TABLET PO SCH ×2 (12:57→17:07)
[2017-02-03] MEDS: POTASSIUM CHLORIDE 20 MEQ TAB.ER.PRT PO SCH ×2 (12:57→17:07)
[2017-02-03] MEDS: PANTOPROZOLE 40MG TABLET PO SCH (12:57)
[2017-02-03] MEDS: CARVEDILOL 3.125 MG TABLET PO SCH (12:57)
[2017-02-03] MEDS: AMLODIPINE 5 MG TABLET PO SCH (12:58)
[2017-02-03] MEDS: LEVOTHYROXINE 100 MCG TABLET PO SCH (12:58)
[2017-02-03] MEDS: PREGABALIN 75 MG CAPSULE PO SCH (12:58)
[2017-02-03] MEDS: FERROUS SULFATE 325 MG TABLET PO SCH (12:58)
[2017-02-03] MEDS: MAGNESIUM OXIDE 400 MG TABLET PO SCH (12:58)
[2017-02-03] MEDS: SODIUM CHLORIDE FLUSH 10ML SYR IVF SCH (13:04)
[2017-02-03 14:00] VITALS: BP 129/75
[2017-02-03 19:21] VITALS: BP 147/77
== END 2017-02-03 20:15 | DRG 871 ==
LOC: ED 15:57 → EDIP 16:09 → 3NE 17:48 → 5SO 01-28 18:18 → 3NE 01-31 14:56
PROVIDERS: ADMIT Internal Medicine; ATTEND Hospitalist
PROC: 0T9B70Z Drainage of Bladder with Drainage Device, Via Natural or Artificial Opening (ICD-10-PCS; 2017-01-27)
PROC: 02HV33Z Insertion of Infusion Device into Superior Vena Cava, Percutaneous Approach (ICD-10-PCS; principal; 2017-02-02)
PROC: B5181ZA Fluoroscopy of Superior Vena Cava using Low Osmolar Contrast, Guidance (ICD-10-PCS; 2017-02-02)
PROC: B548ZZA Ultrasonography of Superior Vena Cava, Guidance (ICD-10-PCS; 2017-02-02)
DX: A41.9 Sepsis, unspecified organism (principal); G93.41 Metabolic encephalopathy; N17.0 Acute kidney failure with tubular necrosis; E43 Unspecified severe protein-calorie malnutrition; Z99.11 Dependence on respirator [ventilator] status; G82.50 Quadriplegia, unspecified; A04.72 Enterocolitis due to Clostridium difficile, not specified as recurrent; J96.10 Chronic respiratory failure, unspecified whether with hypoxia or hypercapnia; E87.0 Hyperosmolality and hypernatremia; I50.32 Chronic diastolic (congestive) heart failure; I13.0 Hypertensive heart and chronic kidney disease with heart failure and stage 1 through stage 4 chronic kidney disease, or unspecified chronic kidney disease; N39.0 Urinary tract infection, site not specified; D68.69 Other thrombophilia; E23.0 Hypopituitarism; B37.49 Other urogenital candidiasis; E11.22 Type 2 diabetes mellitus with diabetic chronic kidney disease; R13.19 Other dysphagia; E11.65 Type 2 diabetes mellitus with hyperglycemia; I48.2 Chronic atrial fibrillation; D63.8 Anemia in other chronic diseases classified elsewhere; J44.9 Chronic obstructive pulmonary disease, unspecified; M06.9 Rheumatoid arthritis, unspecified; M10.9 Gout, unspecified; M19.90 Unspecified osteoarthritis, unspecified site; K21.9 Gastro-esophageal reflux disease without esophagitis; M79.7 Fibromyalgia; N18.3 Chronic kidney disease, stage 3 (moderate); Z16.12 Extended spectrum beta lactamase (ESBL) resistance; Z16.21 Resistance to vancomycin; I08.0 Rheumatic disorders of both mitral and aortic valves; I25.10 Atherosclerotic heart disease of native coronary artery without angina pectoris; E83.39 Other disorders of phosphorus metabolism; E78.00 Pure hypercholesterolemia, unspecified; E78.5 Hyperlipidemia, unspecified; E83.42 Hypomagnesemia; G89.29 Other chronic pain; E03.9 Hypothyroidism, unspecified; D69.6 Thrombocytopenia, unspecified; E11.21 Type 2 diabetes mellitus with diabetic nephropathy; E87.6 Hypokalemia; Z66 Do not resuscitate; L89.90 Pressure ulcer of unspecified site, unspecified stage; T38.0X5A Adverse effect of glucocorticoids and synthetic analogues, initial encounter; N20.0 Calculus of kidney; B96.20 Unspecified Escherichia coli [E. coli] as the cause of diseases classified elsewhere; B96.1 Klebsiella pneumoniae [K. pneumoniae] as the cause of diseases classified elsewhere; B95.2 Enterococcus as the cause of diseases classified elsewhere; Z88.1 Allergy status to other antibiotic agents; Z79.2 Long term (current) use of antibiotics; Z79.52 Long term (current) use of systemic steroids; Z79.01 Long term (current) use of anticoagulants; Z79.4 Long term (current) use of insulin; Z80.7 Family history of other malignant neoplasms of lymphoid, hematopoietic and related tissues; Z86.718 Personal history of other venous thrombosis and embolism; Z86.19 Personal history of other infectious and parasitic diseases; Z86.73 Personal history of transient ischemic attack (TIA), and cerebral infarction without residual deficits; Z87.440 Personal history of urinary (tract) infections; Z87.442 Personal history of urinary calculi; Z90.13 Acquired absence of bilateral breasts and nipples; Z99.3 Dependence on wheelchair; Z99.81 Dependence on supplemental oxygen; Z88.8 Allergy status to other drugs, medicaments and biological substances; Z88.0 Allergy status to penicillin; Z68.21 Body mass index [BMI] 21.0-21.9, adult
CPT/HCPCS: 36415; 36569; 70450; 71010; 74176; 76937; 77001; 80048; 80053; 81001; 82140; 82962; 83036; 83605; 83735; 84100; 84443; 84484; 84550; 85025; 86430; 87040; 87077; 87086; 87106; 87186; 87324; 87493; 93005; 93306; 96360; 96361; J1650; J1815; J2020; J2185; J3370; J3480; C1751; C9113; J3475; J7030; J7040; J7512

== ENCOUNTER 2017-02-15 12:56 | Inpatient (IN) | payer MEDICARE, MEDICAID ==
[~2017-02-15] VITALS: Ht 154.9 cm; Wt 67.2 kg
[~2017-02-15 12:56] MED LIST changes: +ACID1TAB7 PO; +ESTR30CR VG; +FLUC200T PO; +LINE600I14 IV; +Lidoderm 5% Patch TD; +MAGN400T26 PO; +PANT40TA5 PO
[2017-02-15] MEDS ORDERED: SODIUM CHLORIDE FLUSH 10ML SYR IVF ONE ×2 (13:30→17:30)
[2017-02-15] MEDS ORDERED: SODIUM CHLORIDE 0.9% 1,000ML IVBOLUS ONE ×2 (13:30→16:30)
[2017-02-15] MEDS ORDERED: LINE600T37 IV ×2 (13:43→13:44)
[2017-02-15] MEDS ORDERED: FERR324T5 PO ×2 (13:43→13:44)
[2017-02-15] MEDS ORDERED: MORP-52 PO ×2 (13:43→13:44)
[2017-02-15] MEDS ORDERED: ATOR40TA78 PO ×2 (13:43→13:44)
[2017-02-15] MEDS ORDERED: FAMO10TA77 PO ×2 (13:43→13:44)
[2017-02-15] MEDS ORDERED: IPRA3AMP INH ×2 (13:43→13:44)
[2017-02-15] MEDS ORDERED: D-MA50PO PO ×2 (13:43→13:44)
[2017-02-15] MEDS ORDERED: POTA20PA25 PO ×2 (13:43→13:44)
[2017-02-15] MEDS ORDERED: PRED10TA14 PO ×2 (13:43→13:44)
[2017-02-15] MEDS ORDERED: ESTR0.6246 VG ×2 (13:43→13:44)
[2017-02-15] MEDS ORDERED: L.AC1CAP6 PO ×2 (13:43→13:44)
[2017-02-15 14:06] LABS: HEMATOCRIT 32.3 % (34.6-47.8); HEMOGLOBIN 10.8 g/dL (11.7-16.4); WHITE BLOOD COUNT 7.2 x10^3/uL (3.4-10)
[2017-02-15 14:15] LABS: ASPARTATE AMINO TRANSFERASE 34 U/L (15-37); BLOOD UREA NITROGEN 16 mg/dL (7-18)
[2017-02-15 14:19] LABS: IS PT STATUS REG ER OR PRE ER? YES
[2017-02-15] MEDS ORDERED: CEFTRIAXONE PMX 1GM/50ML 50 ML ONE (16:52)
[2017-02-15] MEDS ORDERED: LINEZOLID PMX 600MG/300ML 300 ML IV ONE (17:00)
[2017-02-15] MEDS ORDERED: CEFTRIAXONE PMX 1GM/50ML 50 ML IV ONE (17:00)
[2017-02-15 18:45] VITALS: BP 130/63
[2017-02-15] MEDS ORDERED: ARTIFICIAL TEARS OPHTH SOLN 15ML EACHEYE PRN (19:30)
[2017-02-15] MEDS ORDERED: D5%-LACTATED RINGERS 1,000 ML IV SCH (19:30)
[2017-02-15] MEDS: LINEZOLID IV SCH (22:27)
[2017-02-15] MEDS: NS IV SCH (22:27)
[2017-02-15 22:56] VITALS: BP 128/67
[2017-02-15] MEDS: INSULIN REGULAR 100 UNITS/ML, 3ML VIAL SQ-INSULIN SCH (23:32)
[2017-02-16] VITALS: BP 130/63
[2017-02-16 03:35] VITALS: BP 126/67
[2017-02-16] MEDS: ALBUTEROL/IPRATROPIUM 2.5MG/0.5MG, 3 ML NPPB SCH ×4 (04:00→19:59)
[2017-02-16] MEDS: INSULIN REGULAR 100 UNITS/ML, 3ML VIAL SQ-INSULIN SCH ×4 (07:00→21:24)
[2017-02-16 07:56] VITALS: BP 131/68
[2017-02-16] MEDS: LINEZOLID IV SCH ×2 (08:47→20:51)
[2017-02-16] MEDS: NS IV SCH ×2 (08:47→20:51)
[2017-02-16 09:11] LABS: HEMATOCRIT 31.9 % (34.6-47.8); HEMOGLOBIN 10.4 g/dL (11.7-16.4); WHITE BLOOD COUNT 5.7 x10^3/uL (3.4-10)
[2017-02-16 09:15] LABS: BLOOD UREA NITROGEN 10 mg/dL (7-18)
[2017-02-16] MEDS: FLUTICASONE/VILANTEROL 200-25MCG/INH INH SCH (11:44)
[2017-02-16] MEDS: LIDODERM 5% PATCH TD SCH (11:47)
[2017-02-16 15:00] VITALS: BP 141/70
[2017-02-16 16:51] VITALS: BP 136/66
[2017-02-16] MEDS ORDERED: POTASSIUM CHLORIDE 20 MEQ TAB.ER.PRT PO ONE (18:30)
[2017-02-16 20:41] VITALS: BP 128/72
[2017-02-16] MEDS: FERROUS SULFATE 325 MG TABLET PO SCH (20:51)
[2017-02-16] MEDS: LACTOBACILLUS CHEW TABLET PO SCH (20:51)
[2017-02-16] MEDS: FAMOTIDINE 20 MG TABLET PO SCH (20:51)
[2017-02-16] MEDS: ATORVASTATIN 40 MG TABLET PO SCH (20:51)
[2017-02-16] MEDS: D MANNOSE 500 MG PO SCH (20:52)
[2017-02-16] MEDS: ESTROGENS CONJUGATED 0.625 MG TABLET PO SCH (20:52)
[2017-02-17] MEDS: ALBUTEROL/IPRATROPIUM 2.5MG/0.5MG, 3 ML NPPB SCH ×4 (03:26→19:45)
[2017-02-17 03:49] VITALS: BP 185/79
[2017-02-17 04:15] VITALS: BP 134/76
[2017-02-17 06:07] LABS: BLOOD UREA NITROGEN 8 mg/dL (7-18)
[2017-02-17 08:06] VITALS: BP 146/74
[2017-02-17] MEDS: D MANNOSE 500 MG PO SCH (09:00)
[2017-02-17] MEDS: LACTOBACILLUS CHEW TABLET PO SCH ×2 (10:13→21:03)
[2017-02-17] MEDS: FERROUS SULFATE 325 MG TABLET PO SCH ×2 (10:13→21:03)
[2017-02-17] MEDS: LEVOTHYROXINE 100 MCG TABLET PO SCH (10:13)
[2017-02-17] MEDS: LINEZOLID IV SCH ×2 (10:13→21:03)
[2017-02-17] MEDS: AMIODARONE 200 MG TABLET PO SCH (10:13)
[2017-02-17] MEDS: FLUTICASONE/VILANTEROL 200-25MCG/INH INH SCH (10:13)
[2017-02-17] MEDS: FAMOTIDINE 20 MG TABLET PO SCH ×2 (10:13→21:04)
[2017-02-17] MEDS: PREGABALIN 75 MG CAPSULE PO SCH (10:13)
[2017-02-17] MEDS: NS IV SCH ×2 (10:13→21:03)
[2017-02-17] MEDS: INSULIN REGULAR 100 UNITS/ML, 3ML VIAL SQ-INSULIN SCH ×4 (10:14→21:03)
[2017-02-17] MEDS: LIDODERM 5% PATCH TD SCH (10:15)
[2017-02-17 12:47] VITALS: BP 138/80
[2017-02-17] MEDS ORDERED: ONDANSETRON 2MG/ML, 2ML IVPush PRN (13:00)
[2017-02-17] MEDS: GUAIFENESIN/DM 100-10MG, 5ML UDC PO SCH ×2 (14:51→19:30)
[2017-02-17 19:18] VITALS: BP 128/74
[2017-02-17] MEDS: ESTROGENS CONJUGATED 0.625 MG TABLET PO SCH (21:04)
[2017-02-17] MEDS: ATORVASTATIN 40 MG TABLET PO SCH (21:04)
[2017-02-18] MEDS ORDERED: GUAIFENESIN/DM 100-10MG, 5ML UDC PO PRN
[2017-02-18 02:14] VITALS: BP 121/74
[2017-02-18] MEDS: ALBUTEROL/IPRATROPIUM 2.5MG/0.5MG, 3 ML NPPB SCH ×2 (02:30→07:39)
[2017-02-18] MEDS: INSULIN REGULAR 100 UNITS/ML, 3ML VIAL SQ-INSULIN SCH ×4 (07:00→21:39)
[2017-02-18 08:08] VITALS: BP 115/65
[2017-02-18] MEDS: FLUTICASONE/VILANTEROL 200-25MCG/INH INH SCH (11:08)
[2017-02-18] MEDS: LINEZOLID IV SCH ×2 (11:08→23:59)
[2017-02-18] MEDS: NS IV SCH ×2 (11:08→23:59)
[2017-02-18] MEDS: LACTOBACILLUS CHEW TABLET PO SCH ×2 (11:09→21:39)
[2017-02-18] MEDS: AMIODARONE 200 MG TABLET PO SCH (11:09)
[2017-02-18] MEDS: FAMOTIDINE 20 MG TABLET PO SCH ×2 (11:09→21:39)
[2017-02-18] MEDS: LEVOTHYROXINE 100 MCG TABLET PO SCH (11:09)
[2017-02-18] MEDS: PREGABALIN 75 MG CAPSULE PO SCH (11:09)
[2017-02-18] MEDS: FERROUS SULFATE 325 MG TABLET PO SCH ×2 (11:09→21:39)
[2017-02-18] MEDS: LIDODERM 5% PATCH TD SCH (11:10)
[2017-02-18 15:28] VITALS: BP 119/63
[2017-02-18] MEDS ORDERED: POTASSIUM CHLORIDE 20 MEQ TAB.ER.PRT PO ONE (17:30)
[2017-02-18] MEDS ORDERED: MAGNESIUM SULFATE PMX 4GM/100M 100 ML IV ONE (17:30)
[2017-02-18 19:21] VITALS: BP 123/74
[2017-02-18] MEDS: ATORVASTATIN 40 MG TABLET PO SCH (21:39)
[2017-02-18] MEDS: ESTROGENS CONJUGATED 0.625 MG TABLET PO SCH (21:39)
[2017-02-19 02:23] VITALS: BP 111/79
[2017-02-19] MEDS ORDERED: ALBUTEROL/IPRATROPIUM 2.5MG/0.5MG, 3 ML NPPB PRN (04:00)
[2017-02-19 06:20] LABS: HEMATOCRIT 29.1 % (34.6-47.8)
[2017-02-19 06:30] LABS: BLOOD UREA NITROGEN 7 mg/dL (7-18)
[2017-02-19] MEDS: INSULIN REGULAR 100 UNITS/ML, 3ML VIAL SQ-INSULIN SCH ×2 (07:00→12:11)
[2017-02-19 08:00] VITALS: BP 124/72
[2017-02-19] MEDS: FLUTICASONE/VILANTEROL 200-25MCG/INH INH SCH (08:20)
[2017-02-19] MEDS: FAMOTIDINE 20 MG TABLET PO SCH (08:21)
[2017-02-19] MEDS: PREGABALIN 75 MG CAPSULE PO SCH (08:21)
[2017-02-19] MEDS: LACTOBACILLUS CHEW TABLET PO SCH (08:21)
[2017-02-19] MEDS: LIDODERM 5% PATCH TD SCH (08:22)
[2017-02-19] MEDS: FERROUS SULFATE 325 MG TABLET PO SCH (08:23)
[2017-02-19] MEDS: AMIODARONE 200 MG TABLET PO SCH (08:24)
[2017-02-19] MEDS: LEVOTHYROXINE 100 MCG TABLET PO SCH (08:24)
[2017-02-19] MEDS: NS IV SCH (12:10)
[2017-02-19] MEDS: LINEZOLID IV SCH (12:10)
[2017-02-19 14:16] VITALS: BP 121/66
== END 2017-02-19 17:27 | DRG 871 ==
LOC: ED 15:47 → EDIP 16:46 → 3NE 17:15
PROVIDERS: ADMIT Internal Medicine; ATTEND Hospitalist
PROC: 0T9B70Z Drainage of Bladder with Drainage Device, Via Natural or Artificial Opening (ICD-10-PCS; principal; 2017-02-15)
DX: A41.9 Sepsis, unspecified organism (principal); E43 Unspecified severe protein-calorie malnutrition; J96.21 Acute and chronic respiratory failure with hypoxia; N17.9 Acute kidney failure, unspecified; I48.91 Unspecified atrial fibrillation; E11.22 Type 2 diabetes mellitus with diabetic chronic kidney disease; I13.0 Hypertensive heart and chronic kidney disease with heart failure and stage 1 through stage 4 chronic kidney disease, or unspecified chronic kidney disease; I50.30 Unspecified diastolic (congestive) heart failure; Z99.81 Dependence on supplemental oxygen; N30.90 Cystitis, unspecified without hematuria; D63.8 Anemia in other chronic diseases classified elsewhere; F03.90 Unspecified dementia, unspecified severity, without behavioral disturbance, psychotic disturbance, mood disturbance, and anxiety; I25.2 Old myocardial infarction; B95.2 Enterococcus as the cause of diseases classified elsewhere; B96.20 Unspecified Escherichia coli [E. coli] as the cause of diseases classified elsewhere; E03.9 Hypothyroidism, unspecified; E66.9 Obesity, unspecified; E78.00 Pure hypercholesterolemia, unspecified; Z68.28 Body mass index [BMI] 28.0-28.9, adult; E78.5 Hyperlipidemia, unspecified; F44.4 Conversion disorder with motor symptom or deficit; I25.10 Atherosclerotic heart disease of native coronary artery without angina pectoris; K21.9 Gastro-esophageal reflux disease without esophagitis; M06.9 Rheumatoid arthritis, unspecified; M79.7 Fibromyalgia; N18.9 Chronic kidney disease, unspecified; R65.20 Severe sepsis without septic shock; Z16.21 Resistance to vancomycin; Z79.4 Long term (current) use of insulin; Z86.73 Personal history of transient ischemic attack (TIA), and cerebral infarction without residual deficits; Z99.3 Dependence on wheelchair; Z90.13 Acquired absence of bilateral breasts and nipples; Z87.442 Personal history of urinary calculi; Z90.49 Acquired absence of other specified parts of digestive tract; Z41.1 Encounter for cosmetic surgery; Z88.0 Allergy status to penicillin; Z88.2 Allergy status to sulfonamides; Z88.8 Allergy status to other drugs, medicaments and biological substances; Z79.899 Other long term (current) drug therapy; Z68.34 Body mass index [BMI] 34.0-34.9, adult
CPT/HCPCS: 36415; 70450; 71010; 74230; 80048; 80053; 81001; 82040; 82533; 82962; 83605; 83735; 84132; 84484; 85025; 87040; 87077; 87086; 87186; 87324; 93005; 94640; 96361; 96365; J0696; J1815; J2405; J7620; J2020; J3475; J7030; J7121; J7512